=== PATIENT | male | born 1945 | race Caucasian/White ===

== ENCOUNTER 2017-05-16 14:10 | Emergency (ER) | payer OTHER ==
[~2017-05-16] VITALS: Ht 167.6 cm; Wt 78.0 kg
[~2017-05-16 14:10] MED LIST: BUSP10 PO; ECASA PO; GLUC1000 PO; LISI20 PO; NIFE1TAB85 PO; RANI150 PO; TERA2CAP3 PO; ZOCO40TA PO
[2017-05-16 14:12] VITALS: BP 135/88; PULSE 79; RESP 16; TEMP 98; O2SAT 95
--- NOTE | 2017-05-16 14:27 | PD ---
HPI Chief Complaint: Complaint Time Seen by Provider: 14:26 Travel History International Travel<30 days: No Contact w/Intl Traveler<30days: No Traveled to known affect area: No History of Present Illness HPI 72-year-old male who sees the [place], presents the emergency department with increasing abdominal discomfort, cramping, and burning with urination over the past several days. Patient was recently started on amoxicillin for dental issue. Patient states history of BPH currently on Terazosin, which she states he has not been taking recently. Patient has had intermittent incontinence over the past few weeks as well. Patient denies nausea or vomiting. No specific fever. No bowel changes. Patient is allergic to niacin. PFSH Past Medical History Hx Anticoagulant Therapy: Yes (ASPIRIN) Arthritis: Yes (BILATERAL HANDS) Asthma: No Autoimmune Disease: No Blood Disorders: No Anxiety: No Depression: No Heart Rhythm Problems: No Cancer: No Cardiovascular Problems: Yes High Cholesterol: Yes Chemotherapy: No Chest Pain: No Congestive Heart Failure: No COPD: No Cerebrovascular Accident: Yes Diabetes: Yes Diminished Hearing: Yes (diminished bilaterally) Endocrine: Yes Gastrointestinal Disorders: Yes GERD: No Glaucoma: No Genitourinary: No Headaches: No Hepatitis: No Hiatal Hernia: No Hypertension: Yes Immune Disorder: No Kidney Stones: No Musculoskeletal: Yes Neurologic: No Psychiatric: No Reproductive: No Respiratory: No Migraines: No Myocardial Infarction: No Radiation Therapy: No Renal Failure: No Seizures: No Sickle Cell Disease: No Sleep Apnea: No Thyroid Disease: No Ulcer: Yes PNEUMOCCOCAL Vaccine (Year): 1 Past Surgical History Abdominal Surgery: Yes (APPENDIX YEARS AGO) AICD: No Appendectomy: Yes Arteriovenous Shunt: No Cardiac Surgery: No Cholecystectomy: No Ear Surgery: No Endocrine Surgery: No Eye Surgery: No Genitourinary Surgery: No Gynecologic Surgery: No Insulin Pump: No Joint Replacement: No Oral Surgery: No Pacemaker: No Thoracic Surgery: No Other Surgery: Yes (scoped,"cauterized ulcer") Social History Alcohol Use: No Tobacco Use: Yes (/2 PPD) Substance Use: No Allergies-Medications (Allergen,Severity, Reaction): Coded Allergies: niacin (Verified Allergy, Severe, SWELLS UP, 05/16/17) Reported Meds & Prescriptions Reported Meds & Active Scripts Active Reported Glipizide 5 Mg Tab 5 Mg PO BIDAC Take 30 minutes before a meal Amoxicillin 500 Mg Cap 500 Mg PO TID Zocor (Simvastatin) 40 Mg Tab 40 Mg PO HS Norvasc (Amlodipine Besylate) 5 Mg Tab 5 Mg PO DAILY Tramadol (Tramadol HCl) 50 Mg Tab 50 Mg PO Q6H PRN Zocor (Simvastatin) 40 Mg Tab 40 Mg PO DAILY Vitamin D3 (Cholecalciferol) 1,000 Unit Tab 1,000 Units PO DAILY Terazosin (Terazosin HCl) 2 Mg Cap 2 Mg PO HS Zantac (Ranitidine HCl) 150 Mg Tab 150 Mg PO BID Review of Systems Except as stated in HPI: all other systems reviewed are Neg General / Constitutional: No: Fever, Chills Eyes: No: Visual changes HENT: No: Headaches Cardiovascular: No: Chest Pain or Discomfort Respiratory: No: Shortness of Breath Gastrointestinal: No: Nausea, Vomiting, Diarrhea, Abdominal Pain Genitourinary: Positive: Urgency, Frequency, Dysuria, Hesitancy, Dribbling, Incontinence, Flank Pain, Other (possible retention.), No: Nocturia, Hematuria, Decreased Urinary Output, Oliguria, Discharge Musculoskeletal: No: Pain Skin: No Rash Neurologic: No: Weakness Psychiatric: No: Depression Endocrine: No: Polydipsia Hematologic/Lymphatic: No: Easy Bruising Physical Exam Narrative GENERAL: Patient appears in mild to moderate distress. SKIN: Warm and dry. Normal color. Normal turgor. HEAD: Atraumatic. Normocephalic. EYES: Pupils equal and round. No scleral icterus. No injection or drainage. ENT: No nasal bleeding or discharge. Mucous membranes pink and moist. NECK: Trachea midline. No JVD. CARDIOVASCULAR: Regular rate and rhythm. RESPIRATORY: No accessory muscle use. Clear to auscultation. Breath sounds equal bilaterally. GASTROINTESTINAL: Abdomen soft, moderate suprapubic tenderness with palpable distended bladder. Hepatic and splenic margins not palpable. No significant CVA tenderness with percussion. MUSCULOSKELETAL: Extremities without clubbing, cyanosis, or edema. No obvious deformities. NEUROLOGICAL: Awake and alert. No obvious cranial nerve deficits. Motor grossly within normal limits. Five out of 5 muscle strength in the arms and legs. Normal speech. PSYCHIATRIC: Appropriate mood and affect; insight and judgment normal. Data Data Last Documented VS Vital Signs Date Time Temp Pulse Resp B/P (MAP) Pulse Ox O2 Delivery O2 Flow Rate FiO2 05/16/17 14:45 74 17 05/16/17 14:12 98.0 135/88 (104) 95 Room Air Orders Orders Complete Blood Count With Diff (05/16/17 14:42) Comprehensive Metabolic Panel (05/16/17 14:42) Urinalysis - C+S If Indicated (05/16/17 14:42) Iv Access Insert/Monitor (05/16/17 14:42) Levofloxacin (Levaquin) (05/16/17 14:45) Sodium Chloride 0.9% Flush (Ns Flush) (05/16/17 14:45) Urinary Catheter Insert/Apply (05/16/17 14:42) Lactic Acid (05/16/17 14:42) Tamsulosin (Flomax) (05/16/17 14:45) Labs Laboratory Tests Test 05/16/17 14:50 05/16/17 14:55 White Blood Count 11.0 TH/MM3 Red Blood Count 4.67 MIL/MM3 Hemoglobin 13.8 GM/DL Hematocrit 40.0 % Mean Corpuscular Volume 85.5 FL Mean Corpuscular Hemoglobin 29.6 PG Mean Corpuscular Hemoglobin Concent 34.6 % Red Cell Distribution Width 13.5 % Platelet Count 308 TH/MM3 Mean Platelet Volume 8.2 FL Neutrophils (%) (Auto) 80.5 % Lymphocytes (%) (Auto) 9.2 % Monocytes (%) (Auto) 7.0 % Eosinophils (%) (Auto) 2.6 % Basophils (%) (Auto) 0.7 % Neutrophils # (Auto) 8.9 TH/MM3 Lymphocytes # (Auto) 1.0 TH/MM3 Monocytes # (Auto) 0.8 TH/MM3 Eosinophils # (Auto) 0.3 TH/MM3 Basophils # (Auto) 0.1 TH/MM3 CBC Comment DIFF FINAL Differential Comment Urine Color YELLOW Urine Turbidity CLEAR Urine pH 5.5 Urine Specific [place] 1.009 Urine Protein TRACE mg/dL Urine Glucose (UA) 150 mg/dL Urine Ketones 10 mg/dL Urine Occult Blood MOD Urine Nitrite NEG Urine Bilirubin NEG Urine Urobilinogen LESS THAN 2.0 MG/DL Urine Leukocyte Esterase NEG Urine RBC 21 /hpf Urine WBC 3 /hpf Microscopic Urinalysis Comment CULT NOT INDICATED Blood Urea Nitrogen 16 MG/DL Creatinine 0.91 MG/DL Random Glucose 174 MG/DL Total Protein 7.6 GM/DL Albumin 3.2 GM/DL Calcium Level 8.9 MG/DL Alkaline Phosphatase 59 U/L Aspartate Amino Transf (AST/SGOT) 39 U/L Alanine Aminotransferase (ALT/SGPT) 24 U/L Total Bilirubin 0.7 MG/DL Sodium Level 132 MEQ/L Potassium Level 4.2 MEQ/L Chloride Level 96 MEQ/L Carbon Dioxide Level 28.3 MEQ/L Anion Gap 8 MEQ/L Estimat Glomerular Filtration Rate 82 ML/MIN Lactic Acid Level 1.2 mmol/L [facility] Medical Decision Making Medical Screen Exam Complete: Yes Emergency Medical Condition: Yes Medical Record Reviewed: Yes Differential Diagnosis BPH. Prostatitis. Urinary tract infection. Urinary retention. Narrative Course Patient is medically stable at time of exam. Basic labs ordered including CBC, CMP, lactic acid and urinalysis. Rojas catheter was placed to determine whether patient is retaining urine. Patient is given 750 mg Levaquin by mouth as well as 0.4 mg Flomax by mouth. Patient had a flow of 1500 mL urine post Rojas placement. Symptoms improved. CBC is unremarkable. CMP unremarkable. Urinalysis does not show an acute UTI. Patient is felt to have probable prostatitis with BPH with obstruction with urinary retention. Patient will continue the Rojas, and be treated with Cipro 500 mg twice a day 10 days. Patient is placed on Flomax 0.4 mg daily #30. Patient should maintain the [facility] Patient needs to see a urologist through the [place]. Patient can return to emergency Department with any worsening symptoms as needed. Diagnosis Primary Impression: BPH with urinary obstruction Referrals: [place] [facility] Patient Instructions: Benign Prostatic Hypertrophy (ED), Rojas Catheter Placement and Care (ED), General Instructions Additional Instructions: CBC is unremarkable. CMP unremarkable. Urinalysis does not show an acute UTI. Patient is felt to have probable prostatitis with BPH with obstruction with urinary retention. Patient will continue the Rojas, and be treated with Cipro 500 mg twice a day 10 days. Patient is placed on Flomax 0.4 mg daily #30. Patient should maintain the Ro[facility]. Patient needs to see a urologist through the [place]. Patient can return to emergency Department with any worsening symptoms as needed. Med/Other Pt SpecificInfo: Prescription(s) given Disposition: DISCHARGE HOME Condition: Stable Jonathan Don May 16, 2017 14:26
[2017-05-16] MEDS ORDERED: GLIP5TAB8 PO (14:33)
[2017-05-16] MEDS ORDERED: TERA2CAP3 PO (14:33)
[2017-05-16] MEDS ORDERED: AMOX500C PO (14:33)
[2017-05-16] MEDS ORDERED: ZOCO40TA PO ×2 (14:33)
[2017-05-16] MEDS ORDERED: ZANT150T2 PO (14:33)
[2017-05-16] MEDS ORDERED: TRAM50TA PO (14:33)
[2017-05-16] MEDS ORDERED: VITA100064 PO (14:33)
[2017-05-16] MEDS ORDERED: AMLO5 PO (14:33)
[2017-05-16] MEDS ORDERED: SODIUM CHLORIDE 0.9% FLUSH 10 ML FLUSH IVF PRN (14:45)
[2017-05-16] MEDS ORDERED: TAMSULOSIN HCL 0.4 MG CAP PO ONE (14:45)
[2017-05-16] MEDS ORDERED: LEVOFLOXACIN 750 MG TAB PO ONE (14:45)
[2017-05-16 15:13] LABS: AUTOMATED NEUTROPHIL # 8.9 TH/MM3 (1.8-7.7); BASOPHIL # 0.1 TH/MM3 (0-0.2); BASOPHIL % 0.7 % (0.0-2.0); EOSINOPHIL # 0.3 TH/MM3 (0-0.4); EOSINOPHIL % 2.6 % (0.0-4.0); HEMOGLOBIN 13.8 GM/DL (13.0-17.0); LYMPH % 9.2 % (9.0-44.0); MEAN CELL VOLUME 85.5 FL (80.0-100.0); MEAN CORPUSCULAR HEMOGLOBIN 29.6 PG (27.0-34.0); MEAN CORPUSCULAR HGB CONC 34.6 % (32.0-36.0); MEAN PLATELET VOLUME 8.2 FL (7.0-11.0); MONOCYTE # 0.8 TH/MM3 (0-0.9); NEUT % 80.5 % (16.0-70.0); PLATELET COUNT 308 TH/MM3 (150-450); RED BLOOD COUNT 4.67 MIL/MM3 (4.50-5.90); RED CELL DISTRIBUTION WIDTH 13.5 % (11.6-17.2)
[2017-05-16 15:30] LABS: BILIRUBIN, URINE NEG (NEG); BLOOD, URINE MOD (NEG); GLUCOSE,URINE 150 mg/dL (NEG); KETONE, URINE 10 mg/dL (NEG); NITRITE,URINE NEG (NEG); PH, URINE 5.5 (5.0-8.5); URINE COLOR YELLOW (YELLW/STRAW); URINE LEUKOCYTE ESTERASE NEG (NEG)
[2017-05-16 15:32] LABS: ALBUMIN 3.2 GM/DL (3.4-5.0); ALT (GPT) 24 U/L (12-78); AST (GOT) 39 U/L (15-37); BICARBONATE 28.3 MEQ/L (21.0-32.0); BLOOD UREA NITROGEN 16 MG/DL (7-18); CALCIUM 8.9 MG/DL (8.5-10.1); CHLORIDE 96 MEQ/L (98-107); CREATININE 0.91 MG/DL (0.60-1.30); GLOMERULAR FILTRATION RATE 82 ML/MIN (>89); GLUCOSE,RANDOM 174 MG/DL (74-106); SODIUM (NA) 132 MEQ/L (136-145)
[2017-05-16 15:33] LABS: ALKALINE PHOSPHATASE 59 U/L (45-117); TOTAL BILIRUBIN ADULT 0.7 MG/DL (0.2-1.0); TOTAL PROTEIN 7.6 GM/DL (6.4-8.2)
[2017-05-16] MEDS ORDERED: CIPR-9 PO (15:50)
[2017-05-16] MEDS ORDERED: TAMS5CAP PO (15:50)
[2017-05-16 16:16] VITALS: BP 148/77; TEMP 97.8
== END 2017-05-16 16:17 | disposition home or self-care (01) ==
LOC: NEPE 14:10
DX: N40.1 Benign prostatic hyperplasia with lower urinary tract symptoms (principal); N13.9 Obstructive and reflux uropathy, unspecified; R30.0 Dysuria; E11.9 Type 2 diabetes mellitus without complications; I10 Essential (primary) hypertension; Z79.01 Long term (current) use of anticoagulants; Z72.0 Tobacco use
CPT/HCPCS: 51702; 80053; 81001; 83605; 85025

== ENCOUNTER 2017-05-18 21:06 | Emergency (ER) | payer OTHER ==
[~2017-05-18] VITALS: Ht 167.6 cm; Wt 77.3 kg
[~2017-05-18 21:06] MED LIST changes: +AMLO5 PO; +AMOX500C PO; -BUSP10 PO; +CIPR-9 PO; -ECASA PO; +GLIP5TAB8 PO; -GLUC1000 PO; -LISI20 PO; -NIFE1TAB85 PO; -RANI150 PO; +TAMS5CAP PO; +TRAM50TA PO; +VITA100064 PO; +ZANT150T2 PO
[2017-05-18 21:09] VITALS: BP 146/77; PULSE 80; RESP 18; TEMP 98.5; O2SAT 95
--- NOTE | 2017-05-19 00:49 | PD ---
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 He had it placed on 05/16 because he was unable to urinate. He says it is causing pain to the tip of his penis. He says he was not taking his BPH medication at the time, but has restarted it, so believes he will now be able to pee. He denies any other symptoms. He denies abdominal pain, nausea , vomiting, fever or chills. He has not seen urology yet. PFSH Past Medical History Hx Anticoagulant Therapy: Yes (ASPIRIN) Arthritis: Yes (BILATERAL HANDS) Asthma: No Autoimmune Disease: No Blood Disorders: No Anxiety: No Depression: No Heart Rhythm Problems: No Cancer: No Cardiovascular Problems: Yes (HTN, Hyperlipidemia) High Cholesterol: Yes Chemotherapy: No Chest Pain: No Congestive Heart Failure: No COPD: No Cerebrovascular Accident: Yes Diabetes: Yes Patient Takes Glucophage: Yes Diminished Hearing: Yes (diminished bilaterally) Endocrine: Yes Gastrointestinal Disorders: Yes GERD: No Glaucoma: No Genitourinary: No Headaches: No Hepatitis: No Hiatal Hernia: No Hypertension: Yes Immune Disorder: No Kidney Stones: No Musculoskeletal: Yes Neurologic: No Psychiatric: No Reproductive: No Respiratory: No Migraines: No Myocardial Infarction: No Radiation Therapy: No Renal Failure: No Seizures: No Sickle Cell Disease: No Sleep Apnea: No Thyroid Disease: No Ulcer: Yes PNEUMOCCOCAL Vaccine (Year): 1 Past Surgical History Abdominal Surgery: Yes (APPENDIX YEARS AGO) AICD: No Appendectomy: Yes Arteriovenous Shunt: No Cardiac Surgery: No Cholecystectomy: No Ear Surgery: No Endocrine Surgery: No Eye Surgery: No Genitourinary Surgery: No Gynecologic Surgery: No Insulin Pump: No Joint Replacement: No Oral Surgery: No Pacemaker: No Thoracic Surgery: No Other Surgery: Yes (scoped,"cauterized ulcer") Social History Alcohol Use: No Tobacco Use: Yes (QUIT 3 MONTHS AGO) Substance Use: No Allergies-Medications (Allergen,Severity, Reaction): Coded Allergies: niacin (Verified Allergy, Severe, SWELLS UP, 05/18/17) Reported Meds & Prescriptions Reported Meds & Active Scripts Active Flomax (Tamsulosin HCl) 0.4 Mg Cap 0.4 Mg PO HS Cipro (Ciprofloxacin HCl) 500 Mg Tab 500 Mg PO BID 10 Days Reported Zantac (Ranitidine HCl) 150 Mg Tab 150 Mg PO BID Glipizide 5 Mg Tab 5 Mg PO BIDAC Take 30 minutes before a meal Amoxicillin 500 Mg Cap 500 Mg PO TID Zocor (Simvastatin) 40 Mg Tab 40 Mg PO HS Norvasc (Amlodipine Besylate) 5 Mg Tab 5 Mg PO DAILY Tramadol (Tramadol HCl) 50 Mg Tab 50 Mg PO Q6H PRN Zocor (Simvastatin) 40 Mg Tab 40 Mg PO DAILY Vitamin D3 (Cholecalciferol) 1,000 Unit Tab 1,000 Units PO DAILY Terazosin (Terazosin HCl) 2 Mg Cap 2 Mg PO HS Review of Systems General / Constitutional: No: Fever, Chills HENT: No: Headaches, Lightheadedness Cardiovascular: No: Chest Pain or Discomfort Respiratory: No: Shortness of Breath Gastrointestinal: No: Nausea, Vomiting, Abdominal Pain Genitourinary: No: Dysuria Musculoskeletal: No: Myalgias Skin: No Rash, No Change in Pigmentation Neurologic: No: Weakness, Dizziness Physical Exam Narrative GENERAL: Awake and alert, in no acute distress. SKIN: Focused skin assessment warm/dry. HEAD: Atraumatic. Normocephalic. EYES: Pupils equal and round. No scleral icterus. ENT: Mucous membranes pink and moist. CARDIOVASCULAR: Regular rate and rhythm. No murmur appreciated. RESPIRATORY: No accessory muscle use. Clear to auscultation. Breath sounds equal bilaterally. GASTROINTESTINAL: Abdomen soft, non-tender, nondistended. : No sores to the penis. Lopes catheter in place. NEUROLOGICAL: Awake and alert. No obvious cranial nerve deficits. Motor grossly within normal limits. Normal speech. Data Data Last Documented VS Vital Signs Date Time Temp Pulse Resp B/P (MAP) Pulse Ox O2 Delivery O2 Flow Rate FiO2 05/18/17 23:20 20 100 05/18/17 21:09 98.5 80 146/77 (100) Orders Orders Urinalysis - C+S If Indicated (05/18/17 23:07) MDM Medical Decision Making Medical Screen Exam Complete: Yes Emergency Medical Condition: Yes Medical Record Reviewed: Yes Differential Diagnosis lopes catheter malfunction vs irritation vs obstruction Narrative Course Patient is a 72 year old male who comes in because he would like his lopes catheter removed. I explained to him that if it is removed he very likely will be unable to urinate. He is offered lidocaine jelly to help with the irritation , but insists he wants the catheter removed. Catheter removed. Patient would like to go home and try to urinate. I expressed to him again that I believe he will be unable to urinate without a lopes. He says he wants to go home. Advised to continue his BPH medication. Advised to follow up with urology. Advised to return to the ED as needed for any worsening symptoms. Diagnosis Primary Impression: BPH (benign prostatic hyperplasia) Qualified Codes: N40.1 - Benign prostatic hyperplasia with lower urinary tract symptoms; N13.8 - Other obstructive and reflux uropathy Patient Instructions: Benign Prostatic Hypertrophy (ED), General Instructions Additional Instructions: Follow up with urology. Return to the ED as needed for any worsening symptoms. Disposition: 01 DISCHARGE HOME Condition: Stable Vianca Nash MD May 19, 2017 00:49
== END 2017-05-19 01:32 | disposition home or self-care (01) ==
LOC: NEPD 21:06
DX: N40.1 Benign prostatic hyperplasia with lower urinary tract symptoms (principal); N13.8 Other obstructive and reflux uropathy; I10 Essential (primary) hypertension; E78.5 Hyperlipidemia, unspecified; E11.9 Type 2 diabetes mellitus without complications; Z79.01 Long term (current) use of anticoagulants
CPT/HCPCS: 99283

== ENCOUNTER 2017-05-22 17:36 | Emergency (ER) | payer OTHER ==
[~2017-05-22] VITALS: Ht 167.6 cm; Wt 80.0 kg
[2017-05-22 17:38] VITALS: BP 159/70; PULSE 71; RESP 18; TEMP 99.2; O2SAT 96
--- NOTE | 2017-05-22 17:45 | PD ---
HPI Chief Complaint: Complaint Time Seen by Provider: 17:45 Travel History International Travel<30 days: No Contact w/Intl Traveler<30days: No Traveled to known affect area: No History of Present Illness HPI 72-year-old male came to the emergency room with his for discomfort/pain in his penis where he has the Rojas catheter. Patient had urinary retention on May 16 and was in the emergency room. He had a Rojas catheter put in and discharged home. Then he returned on the second because he wanted the catheter to be taken out which was taken out. However he returned to ID the next day for urinary retention again and the catheter was inserted again. Currently the same catheter is still in but he started having this discomfort and this morning his noticed that he was having blood-tinged urine which continued to get bloodier as the day progressed. Vital signs are stable. Patient is on ciprofloxacin which was started at ID on the fourth. [facility] Past Medical History Narrative Medical List of his past medical, surgical, social and family history is reviewed from the nursing note. Hx Anticoagulant Therapy: Yes (ASPIRIN) Arthritis: Yes (BILATERAL HANDS) Asthma: No Autoimmune Disease: No Blood Disorders: No Anxiety: No Depression: No Heart Rhythm Problems: No Cancer: No Cardiovascular Problems: Yes (HTN, Hyperlipidemia) High Cholesterol: Yes Chemotherapy: No Chest Pain: No Congestive Heart Failure: No COPD: No Cerebrovascular Accident: Yes Diabetes: Yes Diminished Hearing: Yes (diminished bilaterally) Endocrine: Yes Gastrointestinal Disorders: Yes GERD: No Glaucoma: No Genitourinary: No Headaches: No Hepatitis: No Hiatal Hernia: No Hypertension: Yes Immune Disorder: No Kidney Stones: No Musculoskeletal: Yes Neurologic: No Psychiatric: No Reproductive: No Respiratory: No Migraines: No Myocardial Infarction: No Radiation Therapy: No Renal Failure: No Seizures: No Sickle Cell Disease: No Sleep Apnea: No Thyroid Disease: No Ulcer: Yes PNEUMOCCOCAL Vaccine (Year): 1 Past Surgical History Abdominal Surgery: Yes (APPENDIX YEARS AGO) AICD: No Appendectomy: Yes Arteriovenous Shunt: No Cardiac Surgery: No Cholecystectomy: No Ear Surgery: No Endocrine Surgery: No Eye Surgery: No Genitourinary Surgery: No Gynecologic Surgery: No Insulin Pump: No Joint Replacement: No Oral Surgery: No Pacemaker: No Thoracic Surgery: No Other Surgery: Yes (scoped,"cauterized ulcer") Social History Alcohol Use: No Tobacco Use: Yes (QUIT 3 MONTHS AGO) Substance Use: No Allergies-Medications (Allergen,Severity, Reaction): Coded Allergies: niacin (Verified Allergy, Severe, SWELLS UP, 05/22/17) Comments List of his allergies reviewed from the nursing note. Reported Meds & Prescriptions Reported Meds & Active Scripts Active Flomax (Tamsulosin HCl) 0.4 Mg Cap 0.4 Mg PO HS Cipro (Ciprofloxacin HCl) 500 Mg Tab 500 Mg PO BID 10 Days Reported Zantac (Ranitidine HCl) 150 Mg Tab 150 Mg PO BID Glipizide 5 Mg Tab 5 Mg PO BIDAC Take 30 minutes before a meal Zocor (Simvastatin) 40 Mg Tab 40 Mg PO HS Norvasc (Amlodipine Besylate) 5 Mg Tab 5 Mg PO DAILY Tramadol (Tramadol HCl) 50 Mg Tab 50 Mg PO Q6H PRN Vitamin D3 (Cholecalciferol) 1,000 Unit Tab 1,000 Units PO DAILY Terazosin (Terazosin HCl) 2 Mg Cap 2 Mg PO HS Narrative Medication list of his home medications reviewed from the nursing note. Review of Systems Except as stated in HPI: all other systems reviewed are Neg Genitourinary: Positive: Hematuria Physical Exam Narrative GENERAL: Awake, alert, moderate distress SKIN: Focused skin assessment warm/dry. HEAD: Atraumatic. Normocephalic. EYES: Pupils equal and round. No scleral icterus. No injection or drainage. ENT: No nasal bleeding or discharge. Mucous membranes pink and moist. NECK: Trachea midline. No JVD. CARDIOVASCULAR: Regular rate and rhythm. No murmur appreciated. RESPIRATORY: No accessory muscle use. Clear to auscultation. Breath sounds equal bilaterally. GASTROINTESTINAL: Abdomen soft, non-tender, nondistended. Hepatic and splenic margins not palpable. MUSCULOSKELETAL: No obvious deformities. No clubbing. No cyanosis. No edema. NEUROLOGICAL: Awake and alert. No obvious cranial nerve deficits. Motor grossly within normal limits. Normal speech. PSYCHIATRIC: Appropriate mood and affect; insight and judgment normal. Data Data Last Documented VS Vital Signs Date Time Temp Pulse Resp B/P (MAP) Pulse Ox O2 Delivery O2 Flow Rate FiO2 05/22/17 20:43 05/22/17 18:54 70 16 96 Room Air 05/22/17 17:38 99.2 Orders Orders Basic Metabolic Panel (Bmp) (05/22/17 17:56) Complete Blood Count With Diff (05/22/17 17:56) Ua Includes Microscopic (05/22/17 17:56) Ct Abd/Pel W/O Iv Contrast (05/22/17 17:56) Sodium Chloride 0.9% Flush (Ns Flush) (05/22/17 18:00) Bladder/Catheter Irrigation (05/22/17 17:56) Lidocaine 2% Jelly (Xylocaine 2% Jelly) (05/22/17 18:30) Urine Culture (05/22/17 19:38) Ceftriaxone Inj (Rocephin Inj) (05/22/17 19:45) Ed Discharge Order (05/22/17 20:27) Labs Laboratory Tests Test 05/22/17 18:15 05/22/17 18:50 White Blood Count 10.6 TH/MM3 Red Blood Count 4.71 MIL/MM3 Hemoglobin 13.8 GM/DL Hematocrit 41.1 % Mean Corpuscular Volume 87.1 FL Mean Corpuscular Hemoglobin 29.4 PG Mean Corpuscular Hemoglobin Concent 33.7 % Red Cell Distribution Width 13.8 % Platelet Count 352 TH/MM3 Mean Platelet Volume 8.1 FL Neutrophils (%) (Auto) 72.3 % Lymphocytes (%) (Auto) 15.5 % Monocytes (%) (Auto) 8.0 % Eosinophils (%) (Auto) 3.1 % Basophils (%) (Auto) 1.1 % Neutrophils # (Auto) 7.7 TH/MM3 Lymphocytes # (Auto) 1.6 TH/MM3 Monocytes # (Auto) 0.8 TH/MM3 Eosinophils # (Auto) 0.3 TH/MM3 Basophils # (Auto) 0.1 TH/MM3 CBC Comment DIFF FINAL Differential Comment Blood Urea Nitrogen 19 MG/DL Creatinine 0.93 MG/DL Random Glucose 198 MG/DL Calcium Level 8.8 MG/DL Sodium Level 134 MEQ/L Potassium Level 4.1 MEQ/L Chloride Level 99 MEQ/L Carbon Dioxide Level 30.6 MEQ/L Anion Gap 4 MEQ/L Estimat Glomerular Filtration Rate 80 ML/MIN Urine Color RED Urine Turbidity MARKED Urine pH 6.0 Urine Specific [place] 1.019 Urine Protein 100 mg/dL Urine Glucose (UA) 70 mg/dL Urine Ketones NEG mg/dL Urine Occult Blood MOD Urine Nitrite NEG Urine Bilirubin NEG Urine Urobilinogen LESS THAN 2.0 MG/DL Urine Leukocyte Esterase NEG Urine RBC /hpf Urine WBC /hpf Urine WBC Clumps MANY Urine Mucus FEW /lpf MDM Medical Decision Making Medical Screen Exam Complete: Yes Emergency Medical Condition: Yes Medical Record Reviewed: Yes Differential Diagnosis Hemorrhagic cystitis, cystitis, bladder tumor, renal tumor Narrative Course 6:25 PM patient is getting a continuous bladder irrigation. Awaiting for the blood test and UA results. A CT scan has been ordered as well. The plan is that if all the workup is negative then patient will be discharged home. The said that they're waiting for a referral with the urologist which is being coordinated through ID. Procedures EKG Prior to Arrival: No Diagnosis Primary Impression: Gross hematuria Rebecca Haro MD May 22, 2017 17:45
[2017-05-22] MEDS ORDERED: SODIUM CHLORIDE 0.9% FLUSH 10 ML FLUSH IVF PRN (18:00)
[2017-05-22] MEDS ORDERED: LIDOCAINE HCL 2% JELLY 5 ML SYRINGE TOPICAL ONE (18:30)
[2017-05-22 18:54] VITALS: BP 160/95; PULSE 70; RESP 16; O2SAT 96
[2017-05-22 18:55] LABS: AUTOMATED NEUTROPHIL # 7.7 TH/MM3 (1.8-7.7); BASOPHIL # 0.1 TH/MM3 (0-0.2); BASOPHIL % 1.1 % (0.0-2.0); EOSINOPHIL # 0.3 TH/MM3 (0-0.4); EOSINOPHIL % 3.1 % (0.0-4.0); HEMATOCRIT 41.1 % (39.0-51.0); HEMOGLOBIN 13.8 GM/DL (13.0-17.0); LYMPH % 15.5 % (9.0-44.0); LYMPHOCYTE # 1.6 TH/MM3 (1.0-4.8); MEAN CELL VOLUME 87.1 FL (80.0-100.0); MEAN CORPUSCULAR HEMOGLOBIN 29.4 PG (27.0-34.0); MEAN CORPUSCULAR HGB CONC 33.7 % (32.0-36.0); MEAN PLATELET VOLUME 8.1 FL (7.0-11.0); MONOCYTE # 0.8 TH/MM3 (0-0.9); NEUT % 72.3 % (16.0-70.0); PLATELET COUNT 352 TH/MM3 (150-450); RED BLOOD COUNT 4.71 MIL/MM3 (4.50-5.90); RED CELL DISTRIBUTION WIDTH 13.8 % (11.6-17.2); WHITE BLOOD COUNT 10.6 TH/MM3 (4.0-11.0)
--- NOTE | 2017-05-22 18:56 | RADRPT ---
EXAM DATE/TIME: 05/22/2017 18:06 [place] COMPARISON: No previous studies available for comparison. INDICATIONS : Acute onset of penile pain, gross hematuria and urinary retention. ORAL CONTRAST: No oral contrast ingested. RADIATION DOSE: 7.33 CTDIvol (mGy) MEDICAL HISTORY : Cardiovascular disease. Hypertension. Diabetes mellitus type 2. SURGICAL HISTORY : Appendectomy. ENCOUNTER: Initial ACUITY: 1 day PAIN SCALE: 6/10 LOCATION: penis TECHNIQUE: Volumetric scanning of the abdomen and pelvis was performed. Using automated exposure control and ad justment of the mA and/or kV according to patient size, radiation dose was kept as low as reasonably achievable to obtain optimal diagnostic quality images. DICOM format image data is available electro nically for review and comparison. FINDINGS: LOWER LUNGS: The left hemidiaphragm is elevated. There is compressive atelectasis in the left lower lobe. Calcifie d plaque is identified in the left anterior descending coronary artery. LIVER: Homogeneous density without lesion. There is no dilation of the biliary tree. No calcified gallston es. SPLEEN: Normal size without lesion. PANCREAS: Within normal limits. KIDNEYS: Normal in size and shape. There is no mass, stone, or hydronephrosis. 2 simple cyst identified in th e right kidney measuring 4.4 and 6.4 cm in size. ADRENAL GLANDS: Within normal limits. VASCULAR: There is no aortic aneurysm. BOWEL/MESENTERY: The stomach, small bowel, and colon demonstrate no acute abnormality. There is no free intraperitone al air or fluid. ABDOMINAL WALL: Within normal limits. RETROPERITONEUM: There is no lymphadenopathy. BLADDER: Rojas catheter noted in place. The ureter bladder is collapsed however bladder wall thickening is ashleigh arent. REPRODUCTIVE: The prostate gland is enlarged. Calcific deposits are seen in the transition zone. INGUINAL: There is no lymphadenopathy or hernia. MUSCULOSKELETAL: Within normal limits for patient age. CONCLUSION: 1. Decompressed bladder with indwelling Rojas and thickened urinary bladder wall 2. Prostatomegaly 3. Right renal cysts 4. No evidence of renal mass or hydronephrosis 5. Coronary artery calcification. 6. Elevated left hemidiaphragm with compressive atelectasis in the left lower lobe James Yu MD on May 22, 2017 at 18:49 Board Certified Radiologist. This report was verified electronically.
--- NOTE | 2017-05-22 19:09 | PD ---
Physical Exam Date Seen by Provider: May 22, 2017 Time Seen by Provider: 19:08 Narrative Accepted in transfer of care from Dr. Haro Data Data Last Documented VS Vital Signs Date Time Temp Pulse Resp B/P (MAP) Pulse Ox O2 Delivery O2 Flow Rate FiO2 05/22/17 18:54 70 16 160/95 (116) 96 Room Air 05/22/17 17:38 99.2 Orders Orders Basic Metabolic Panel (Bmp) (05/22/17 17:56) Complete Blood Count With Diff (05/22/17 17:56) Ua Includes Microscopic (05/22/17 17:56) Ct Abd/Pel W/O Iv Contrast (05/22/17 17:56) Sodium Chloride 0.9% Flush (Ns Flush) (05/22/17 18:00) Bladder/Catheter Irrigation (05/22/17 17:56) Lidocaine 2% Jelly (Xylocaine 2% Jelly) (05/22/17 18:30) Urine Culture (05/22/17 19:38) Ceftriaxone Inj (Rocephin Inj) (05/22/17 19:45) Labs Laboratory Tests Test 05/22/17 18:15 05/22/17 18:50 White Blood Count 10.6 TH/MM3 Red Blood Count 4.71 MIL/MM3 Hemoglobin 13.8 GM/DL Hematocrit 41.1 % Mean Corpuscular Volume 87.1 FL Mean Corpuscular Hemoglobin 29.4 PG Mean Corpuscular Hemoglobin Concent 33.7 % Red Cell Distribution Width 13.8 % Platelet Count 352 TH/MM3 Mean Platelet Volume 8.1 FL Neutrophils (%) (Auto) 72.3 % Lymphocytes (%) (Auto) 15.5 % Monocytes (%) (Auto) 8.0 % Eosinophils (%) (Auto) 3.1 % Basophils (%) (Auto) 1.1 % Neutrophils # (Auto) 7.7 TH/MM3 Lymphocytes # (Auto) 1.6 TH/MM3 Monocytes # (Auto) 0.8 TH/MM3 Eosinophils # (Auto) 0.3 TH/MM3 Basophils # (Auto) 0.1 TH/MM3 CBC Comment DIFF FINAL Differential Comment Blood Urea Nitrogen 19 MG/DL Creatinine 0.93 MG/DL Random Glucose 198 MG/DL Calcium Level 8.8 MG/DL Sodium Level 134 MEQ/L Potassium Level 4.1 MEQ/L Chloride Level 99 MEQ/L Carbon Dioxide Level 30.6 MEQ/L Anion Gap 4 MEQ/L Estimat Glomerular Filtration Rate 80 ML/MIN Urine Color RED Urine Turbidity MARKED Urine pH 6.0 Urine Specific [place] 1.019 Urine Protein 100 mg/dL Urine Glucose (UA) 70 mg/dL Urine Ketones NEG mg/dL Urine Occult Blood MOD Urine Nitrite NEG Urine Bilirubin NEG Urine Urobilinogen LESS THAN 2.0 MG/DL Urine Leukocyte Esterase NEG Urine RBC /hpf Urine WBC /hpf Urine WBC Clumps MANY Urine Mucus FEW /lpf MDM Medical Record Reviewed: Yes Supervised Visit with DAMON: No Interpretation(s) CBC & BMP Diagram 05/22/17 18:15 Calcium Level 8.8 Last Impressions Abdomen/Pelvis CT 05/22/17 4586 Signed Impressions: Service Date/Time: Monday, May 22, 2017 18:06 - CONCLUSION: 1. Decompressed bladder with indwelling Rojas and thickened urinary bladder wall 2. Prostatomegaly 3. Right renal cysts 4. No evidence of renal mass or hydronephrosis 5. Coronary artery calcification. 6. Elevated left hemidiaphragm with compressive atelectasis in the left lower lobe James Yu MD Vital Signs Date Time Temp Pulse Resp B/P (MAP) Pulse Ox O2 Delivery O2 Flow Rate FiO2 05/22/17 18:54 70 16 160/95 (116) 96 Room Air 05/22/17 17:38 99.2 71 18 159/70 (99) 96 Urinalysis: Catheterized specimen many WBCs; culture added and patient will be given first dose of Rocephin times one Differential Diagnosis Accepted in transfer of care from Dr. Haro; please refer to her dictation Narrative Course Accepted in transfer of care from Dr. Haro; follow up and disposition Lab values resulted patient identified to have multiple wbc's on catheterized urinalysis patient is on Cipro culture has been ordered and patient will receive a one-time dose of Rocephin 1 g IV in the emergency department and then will be stable for discharge to home and encouraged to increase fluid hydration Diagnosis Primary Impression: Gross hematuria Referrals: Urologist call for appointment On-call urologist Dr. [facility] [place] [facility] Day 2 days Patient Instructions: General Instructions Additional Instruction: Increase fluid hydration Follow-up with urologist Complete course of antibiotic as prescribed Take acetaminophen/Tylenol as often as every 4 hours as needed for fever 100.4 days Fahrenheit or greater Return to the emergency department for any concerns or change in condition Med/Other Pt SpecificInfo: No Change to Meds Disposition: 01 DISCHARGE HOME Condition: Stable Laurie Bolaños MD May 22, 2017 19:09
[2017-05-22 19:12] LABS: BICARBONATE 30.6 MEQ/L (21.0-32.0); CALCIUM 8.8 MG/DL (8.5-10.1); CREATININE 0.93 MG/DL (0.60-1.30)
[2017-05-22 19:19] LABS: BILIRUBIN, URINE NEG (NEG); BLOOD, URINE MOD (NEG); GLUCOSE,URINE 70 mg/dL (NEG); KETONE, URINE NEG (NEG); MUCUS URINE FEW /lpf (OCC); NITRITE,URINE NEG (NEG); URINE LEUKOCYTE ESTERASE NEG (NEG); WHITE BLOOD CELL CLUMPS MANY
[2017-05-22 19:20] LABS: URINE COLOR RED (YELLW/STRAW)
[2017-05-22] MEDS ORDERED: cefTRIAXone INJ 1,000 MG in SODIUM CHLORIDE 0.9% INJ 100 ML IV ONE (19:45)
== END 2017-05-22 21:30 | disposition home or self-care (01) ==
LOC: NEPC 17:36
DX: R31.0 Gross hematuria (principal); I10 Essential (primary) hypertension; E11.9 Type 2 diabetes mellitus without complications; Z79.01 Long term (current) use of anticoagulants
CPT/HCPCS: 74176; 80048; 81001; 85025; 87086; 96374; 99285; J0696

== ENCOUNTER 2018-03-28 10:47 | Inpatient (IN) ==
--- NOTE | 2018-03-28 11:15 | CT ---
EXAM DATE: 03/28/2018 11:09 AM EST AGE/SEX: 73 years / Male INDICATIONS: Left side weakness confusion CLINICAL DATA: This is the patient's initial encounter. Patient reports that signs and symptoms have been present for 1 day and indicates a pain score of Nonresponsive. MEDICAL/SURGICAL HISTORY: Non-responsive. Non-responsive. RADIATION DOSE: 39.82 CTDI (mGy) [place] [facility] [place]. . TECHNIQUE: CT of the head without contrast. Using automated exposure control and adjustment of the mA and/or kV according to patient size, radiation dose was kept as low as reasonably achievable to ob tain optimal diagnostic quality images. DICOM format image data is available electronically for revi ew and comparison. FINDINGS: Focal area of decreased density in the right orbital frontal region probably subacute stroke. 2 small focal areas of increased density in the basal ganglia bilaterally larger on the right than the left. These could be calcification or hemorrhage. There is mild central and cortical atrophy. Moderate periventricular white matter changes are evident Posterior fossa appears unremarkable . There are no extra-axial fluid collections appreciated. Portion of the orbits reveal sinuses visualized are unremarkable CONCLUSION: 1. Probable subacute stroke right orbital frontal region 2. Probably calcification basal ganglia bilaterally. Cannot entirely exclude hemorrhage 3. Findings were discussed with Dr. Michelle while on the scanner. Electronically signed by: Matt Lynn MD 03/28/2018 11:13 AM EST
[2018-03-28 11:22] LABS: Baso # (Auto) 0.1 th/mm3 (0.0-0.2); Baso % (Auto) 0.6 % (0.0-2.0); Eos # (Auto) 0.2 th/mm3 (0.0-0.4); Eos % (Auto) 1.5 % (0.0-4.0); Hematocrit 44.5 % (39.0-51.0); Hemoglobin 14.8 gm/dL (13.0-17.0); Lymph # (Auto) 1.7 th/mm3 (1.0-4.8); Lymph % (Auto) 15.1 % (9.0-44.0); Mean Corpuscular HGB Conc 33.2 % (32.0-36.0); Mean Corpuscular Hemoglobin 29.2 pg (27.0-34.0); Mean Platelet Volume 8.2 fL (7.0-11.0); Mono # (Auto) 0.9 th/mm3 (0.0-0.9); Mono % (Auto) 8.2 % (0.0-8.0); Neut # (Auto) 8.4 th/mm3 (1.8-7.7); Neut % (Auto) 74.6 % (16.0-70.0); Platelet Count 305 th/mm3 (150-450); Red Blood Count 5.05 mil/mm3 (4.50-5.90); Red Cell Distribution Width 14.3 % (11.6-17.2); White Blood Count 11.2 th/mm3 (4.0-11.0)
[2018-03-28] MEDS: Sod Chloride 0.9% Inj 1,000 ML IV.CONT SCH ×2 (11:35→14:18)
[2018-03-28 11:36] LABS: Activated Partial Thrombo Time 30.9 sec (23.4-31.7); INR 1.1 Ratio
[2018-03-28 11:45] LABS: Creatine Kinase 369 U/L (39-308)
--- NOTE | 2018-03-28 11:53 | CT ---
EXAM DATE: 03/28/2018 11:38 AM EST AGE/SEX: 73 years / Male INDICATIONS: Left side weakness confusion CLINICAL DATA: This is the patient's initial encounter. Patient reports that signs and symptoms have been present for 1 day and indicates a pain score of Nonresponsive. MEDICAL/SURGICAL HISTORY: Non-responsive. Non-responsive. RADIATION DOSE: 314.22 CTDI (mGy) COMPARISON: . TECHNIQUE: CT of the head after intravenous administration of 40 ml Visipaque 320 (iodixanol) nonio johana water-soluble contrast as a single exam dose. Using automated exposure control and adjustment of the mA and/or kV according to patient size, radiation dose was kept as low as reasonably achievable to obtain optimal diagnostic quality images. DICOM format image data is available electronically for review and comparison. FINDINGS: 1. CBF (<30%) Volume (ml): 16 2. Perfusion (Tmax>6.0s) Volume (ml): 231 3. Mismatch Volume (ml) (Tmax>6.0 - CBF): 215 CONCLUSION: Physiological brain perfusion parameters with RAPID analysis as above. The decision for consideration of therapy is multi factorial and multi disciplinary relying on subjec tive and objective clinical data. This data is not construed or intended to be the sole determinant of treatment eligibility. Electronically signed by: Romie Lynn MD 03/28/2018 11:52 AM EST
--- NOTE | 2018-03-28 11:54 | XR ---
EXAM DATE: 03/28/2018 11:49 AM EST AGE/SEX: 73 years / Male INDICATIONS: Stroke alert. CLINICAL DATA: This is the patient's initial encounter. Patient reports that signs and symptoms have been present for 1 day and indicates a pain score of 6/10. MEDICAL/SURGICAL HISTORY: Non-responsive. Non-responsive. COMPARISON: [facility] – [place], CHEST SINGLE AP, 05/03/2012. . FINDINGS: The left hemidiaphragm is elevated. This is of uncertain etiology. The heart is normal in size. There are chronic interstitial changes within the pulmonary parenchyma. The bony structures are grossly in tact. CONCLUSION: Elevation of the left hemidiaphragm. Chronic interstitial changes within the pulmonary parenchyma Electronically signed by: Romie Lnyn MD 03/28/2018 11:53 AM EST
[2018-03-28 11:57] LABS: CKMB Percent 0.6 % (0.0-4.0); Creatine Kinase MB 2.2 ng/mL (0.5-3.6)
--- NOTE | 2018-03-28 12:01 | CT ---
EXAM DATE: 03/28/2018 11:40 AM EST AGE/SEX: 73 years / Male INDICATIONS: Left side weakness confusion CLINICAL DATA: This is the patient's initial encounter. Patient reports that signs and symptoms have been present for 1 day and indicates a pain score of Nonresponsive. MEDICAL/SURGICAL HISTORY: Non-responsive. Non-responsive. RADIATION DOSE: 28.46 CTDI (mGy) ; Combined studies COMPARISON: [facility] – [place], [place] CEREBRAL PERF W CONTRAST W 3D, 03/28/2018. . TECHNIQUE: Volumetric scanning was performed using a multi-row detector CT scanner during bolus infu cory of 70 ml Visipaque 320 (iodixanol) nonionic water-soluble contrast as a cumulative dose for mul tiple exams. The data was post processed with a variety of visualization algorithms including full volume maximum intensity projection, multi-planar sliding thin slab reformation, curved planar reform ation, and surface rendering techniques. Using automated exposure control and adjustment of the mA a nd/or kV according to patient size, radiation dose was kept as low as reasonably achievable to obtain optimal diagnostic quality images. DICOM format image data is available electronically for review a nd comparison. FINDINGS: Rapid perfusion imaging demonstrates developing cortical infarct in the watershed distribution wastewater technician iorly on the right. The distal internal carotid arteries are widely patent. The anterior and middle cerebral circulation appears widely patent. No large or central vessel occlusion is identified. Both vertebral arteries are widely patent. The basilar is widely patent. The posterior cerebral circu lation is patent bilaterally. CONCLUSION: 1. Rapid perfusion imaging demonstrates evolving cortical infarction the watershed distribution post eriorly on the right. 2. No large or central vessel occlusion identified. Electronically signed by: Romie Lynn MD 03/28/2018 11:59 AM EST
--- NOTE | 2018-03-28 12:07 | CT ---
EXAM DATE: 03/28/2018 11:58 AM EST AGE/SEX: 73 years / Male INDICATIONS: Stroke alert, nonresponsive. CLINICAL DATA: This is the patient's initial encounter. Patient reports that signs and symptoms have been present for 1 day and indicates a pain score of Nonresponsive. MEDICAL/SURGICAL HISTORY: Non-responsive. Non-responsive. RADIATION DOSE: 28.46 CTDI (mGy) ; Combined studies COMPARISON: [facility], CTA CAROTID ARTERIES W 3D RECON, 08/08/2014. . TECHNIQUE: Volumetric scanning was performed using a multirow detector CT scanner during bolus infus ion of 60 ml Visipaque 320 (iodixanol) nonionic water-soluble contrast as a cumulative dose for mult iple exams. The data was postprocessed with a variety of visualization algorithms including full-vo lume maximum intensity projection, multiplanar sliding thin-slab reformation, curved-planar reformati on, and surface-rendering techniques. Using automated exposure control and adjustment of the mA and/ or kV according to patient size, radiation dose was kept as low as reasonably achievable to obtain op timal diagnostic quality images. DICOM format image data is available electronically for review and comparison. Percent stenosis is calculated using the diameter of the stenotic region over the diameter of the nor mal distal internal carotid artery. FINDINGS: Aortic arch: There is normal anatomic branching of the great vessels from the arch. The origins of th e great vessels are widely patent. Right carotid: The common carotid is widely patent. There is densely calcified atherosclerotic plaqui ng at the bifurcation with complete occlusion of the right internal circulation at its origin. There is reconstitution just above the level the clinoid. The right MCA appears widely patent. Left carotid: The left common carotid is widely patent. There is densely calcified atherosclerotic pl aquing at the bifurcation with considerable hard and soft plaque present. This results in stenosis at the origin of the left internal carotid estimated the range of 60-70% by NASCET criteria. The more c ephalad portion of internal carotid is widely patent. Vertebral circulation: Both vertebral arteries appear patent throughout their course. The basilar is widely patent. CONCLUSION: 1. 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 2. Densely calcified plaque with considerable soft plaque present as well the bifurcation on the lef t resulting in stenosis estimated to be in the range of 60-70% involving the origin of the left inter nal carotid. 3. The vertebral circulation is patent bilaterally. Electronically signed by: Romie Lynn MD 03/28/2018 12:06 PM EST
[2018-03-28 12:35] LABS: Amphetamine Screen,Urine Neg (Neg); Barbiturate Screen,Urine Neg (Neg); Bilirubin,Urine Negative (Negative); Cannabinoid Screen,Urine Neg (Neg); Clarity,Urine Clear (Clear); Cocaine Screen,Urine Neg (Neg); Color,Urine Yellow (Yellw/Straw); Glucose,Urine (UA) 500 or Greater mg/dL (Negative); Leukocyte Esterase,Urine Negative (Negative); Mucus,Urine Few /lpf (Occasional); Nitrite,Urine Negative (Negative); Specific Gravity,Urine 1.018 (1.002-1.035)
[2018-03-28 12:42] LABS: Opiate Screen,Urine Neg (Neg)
[2018-03-28] MEDS ORDERED: Dextrose 50% in Water 50 ML Vial IV.PUSH PRN (13:36)
--- NOTE | 2018-03-28 14:25 | ED ---
HPI General Chief Complaint: Stroke Alert Stated Complaint: Stroke Time Seen by Provider: 03/28/18 10:54 History of Present Illness HPI Narrative: This is a 73-year-old male with history of hypertension, hyperlipidemia, diabetes mellitus, presents today with strokelike symptoms. Patient was last seen normal at midnight last night. Patient will With the symptoms. Patient has left upper extremity paralysis, weakness to his left lower extremity, facial droop and dysarthria and mild a aphasia. Patient denies any pain. He is currently only taking aspirin as a blood thinner. There is no other further history could be elicited from the patient. Related Data Home Medications Medication Instructions Recorded Confirmed amlodipine 5 mg PO DAILY 03/28/18 03/28/18 finasteride 5 mg PO DAILY 03/28/18 03/28/18 glipizide 5 mg PO DAILY 03/28/18 03/28/18 simvastatin [Zocor] 40 mg PO QPM 03/28/18 03/28/18 tamsulosin [Flomax] 0.4 mg PO DAILY 03/28/18 03/28/18 Allergies Allergy/AdvReac Type Severity Reaction Status Date / Time niacin Allergy Severe Swelling Verified 03/28/18 11:03 Review of Systems ROS Unobtainable ROS Unobtainable: unobtainable due to mental status (Unable to obtain secondary to patient's presenting status) [facility] Medical History Medical History BPH (benign prostatic hyperplasia) (Acute) Diabetes (Acute) HBP (high blood pressure) (Acute) High cholesterol (Acute) Surgical history unknown (Acute) Social History Social History Substance History: No History of Abuse Second Hand Smoke Exposure: No Smoking Status: Former smoker Tobacco Type: Cigarettes How Often Do You Have a Drink Containing Alcohol: Never Recent Travel in [facility] within the Last 8 Weeks: No Recent Out of Country Travel within the Last 8 Weeks: No Immunization History Tetanus Immunization: >5 Years Exam Narrative Exam Narrative: GENERAL: Well developed well-nourished male in no acute respiratory distress. SKIN: Focused skin assessment warm/dry. HEAD: Atraumatic. Normocephalic. EYES: Extraocular muscles appeared intact. No scleral icterus. No injection or drainage. ENT: No nasal bleeding or discharge. Mucous membranes pink and moist. NECK: Trachea midline. Supple. CARDIOVASCULAR: Regular rate and rhythm. No murmur appreciated. RESPIRATORY: No accessory muscle use. Clear to auscultation. Breath sounds equal bilaterally. GASTROINTESTINAL: Abdomen soft, non-tender, nondistended. Hepatic and splenic margins not palpable. MUSCULOSKELETAL: No obvious deformities. No clubbing. No cyanosis. No edema. NEUROLOGICAL: Awake with dysarthria. Patient has some receptive a aphasia and difficult following commands. 0 out of 5 left upper extremity strength, 3 out of 5 left lower extremity strength, 5 out of 5 right upper and right lower extremity strength. There is a facial droop noted on the left side. Course Initial Documented Vital Signs Temperature 97.8 F 03/28/18 10:50 Pulse Rate 89 03/28/18 10:50 Respiratory Rate 18 03/28/18 10:50 Blood Pressure 123/72 03/28/18 10:50 Pulse Oximetry 98 03/28/18 10:50 Last Documented Vital Signs Temperature 97.8 F 03/28/18 13:58 Pulse Rate 62 03/28/18 13:58 Respiratory Rate 17 03/28/18 13:58 Blood Pressure 139/101 H 03/28/18 13:58 Pulse Oximetry 99 03/28/18 13:58 Critical Care Time Critical Care Time: Yes Total Critical Care Time: 45 Attestation: Aggregate critical care time was 45 minutes. Time to perform other separately billable procedures was not included in the critical care time. My time did not include minutes spent treating any other patients simultaneously or on activities that did not directly contribute to the patient's treatment. The services I provided to this patient were to treat and/or prevent clinically significant deterioration that could result in: I provided critical care services requiring my management, as noted below: Chart data review, documentation time, medication orders and management, vital sign assessments/reviewing monitor data, ordering and reviewing lab tests, ordering and interpreting/reviewing x-rays and diagnostic studies, care of the patient and discussion of the patient with the admitting physicians. NIH Stroke Scale NIH Stroke Scale Level of Consciousness: 0-Alert Orientation Questions: 2-Neither task correct Responds to Commands: 1-One task correct Gaze Eye Movement: 2-Complete gaze palsy Visual Sylvester: 0-No visual field defect Facial Movement: 1-Minor facial palsy Motor Functions Arm LEFT: 3-No effort against gravity Motor Functions Arm RIGHT: 0-No drift Motor Functions Leg LEFT: 1-Drift before 5 seconds Motor Functions Leg RIGHT: 0-No drift Limb Ataxia: 1-Ataxia in one limb Sensory Loss: 1-Mild sensory loss Best Language: 1-Mild aphasia Articulation: 1-Mild dysarthia Extinction or Inattention Sensory: 0-Absent Total: 14 Quality Measure Queries Stroke Last date observed well: 03/27/18 Last time observed well: 21:00 Medical Decision Making MDM Narrative Medical decision making narrative: 73-year-old male with history of hypertension , dyslipidemia, diabetes mellitus, presents as a stroke alert. Patient was made a stroke alert as he was in the 24-hour window for new stroke alert policy. Patient has a subacute stroke noted in his right frontal lobe. CT angiogram shows a completely occluded right carotid artery. There is also 60-70 % stenosis in the left carotid artery. The patient is not a candidate for TPA or clot retrieval. [facility] be [facility] Case was discussed with Dr. Abarca who will admit the patient to the service. Medical Screen Exam Complete: Yes Emergency Medical Condition: Yes Differential Diagnosis Differential Diagnosis: Embolic versus hemorrhagic stroke versus metabolic derangement Lab Data Result diagrams: 03/28/18 10:45 Lab Results 03/28/18 03/28/18 03/28/18 Range/Units 10:45 10:45 10:45 WBC 11.2 H (4.0-11.0) th/mm3 RBC 5.05 (4.50-5.90) mil/mm3 Hgb 14.8 (13.0-17.0) gm/dL POC Hgb (Calc) 15.0 (13.0-17.0) g/dL Hct 44.5 (39.0-51.0) % POC Hct 44.0 (39-51.0) % MCV 88.0 (80.0-100.0) fL MCH 29.2 (27.0-34.0) pg MCHC 33.2 (32.0-36.0) % RDW 14.3 (11.6-17.2) % Plt Count 305 (150-450) th/mm3 MPV 8.2 (7.0-11.0) fL Neut % (Auto) 74.6 H (16.0-70.0) % Lymph % (Auto) 15.1 (9.0-44.0) % Louisa % (Auto) 8.2 H (0.0-8.0) % Eos % (Auto) 1.5 (0.0-4.0) % Baso % (Auto) 0.6 (0.0-2.0) % Neut # (Auto) 8.4 H (1.8-7.7) th/mm3 Lymph # (Auto) 1.7 (1.0-4.8) th/mm3 Louisa # (Auto) 0.9 (0.0-0.9) th/mm3 Eos # (Auto) 0.2 (0.0-0.4) th/mm3 Baso # (Auto) 0.1 (0.0-0.2) th/mm3 WBC Differential . Differential Comment Auto diff final PT 11.0 (9.8-11.6) sec INR 1.1 Ratio APTT 30.9 (23.4-31.7) sec Fibrinogen 474 H (227-377) mg/dL POC Sodium 137 (137-144) mmol/L POC Potassium 3.3 L (3.6-5.0) mmol/L POC Chloride 97 L (102-111) mmol/L POC BUN 17 (5-21) mg/dL POC Creatinine 0.8 (0.6-1.3) mg/dL POC Glucose 183 H (68-110) mg/dL Total Creatine Kinase 369 H (39-308) U/L CK-MB (CK-2) 2.2 (0.5-3.6) ng/mL CK-MB (CK-2) % 0.6 (0.0-4.0) % Troponin I Less than 0.02 L (0.02-0.05) ng/mL Urine Color (Yellw/Straw) Urine Clarity (Clear) Urine pH (5.0-8.5) Ur Specific L[place] (1.002-1.035) Urine Protein (Neg-Trace) mg/dL Urine Glucose (UA) (Negative) mg/dL Urine Ketones (Negative) mg/dL Urine Occult Blood (Negative) Urine Nitrate (Negative) Urine Bilirubin (Negative) Urine Urobilinogen (Less than 2) mg/dL Ur Leukocyte Esterase (Negative) Urine WBC (0-5) /hpf Urine Mucus (Occasional) /lpf Micro UA Comment Ur Microscopic Review Urine Culture Comments Urine Opiates Screen (Neg) Ur Barbiturates Screen (Neg) Ur Amphetamines Screen (Neg) U Benzodiazepines Scrn (Neg) Urine Cocaine Screen (Neg) U Cannabinoids Screen (Neg) Blood Type Blood Type Recheck Antibody Screen 03/28/18 03/28/18 03/28/18 Range/Units 10:55 11:55 11:55 WBC (4.0-11.0) th/mm3 RBC (4.50-5.90) mil/mm3 Hgb (13.0-17.0) gm/dL POC Hgb (Calc) (13.0-17.0) g/dL Hct (39.0-51.0) % POC Hct (39-51.0) % MCV (80.0-100.0) fL MCH (27.0-34.0) pg MCHC (32.0-36.0) % RDW (11.6-17.2) % Plt Count (150-450) th/mm3 MPV (7.0-11.0) fL Neut % (Auto) (16.0-70.0) % Lymph % (Auto) (9.0-44.0) % Louisa % (Auto) (0.0-8.0) % Eos % (Auto) (0.0-4.0) % Baso % (Auto) (0.0-2.0) % Neut # (Auto) (1.8-7.7) th/mm3 Lymph # (Auto) (1.0-4.8) th/mm3 Louisa # (Auto) (0.0-0.9) th/mm3 Eos # (Auto) (0.0-0.4) th/mm3 Baso # (Auto) (0.0-0.2) th/mm3 WBC Differential Differential Comment PT (9.8-11.6) sec INR Ratio APTT (23.4-31.7) sec Fibrinogen (227-377) mg/dL POC Sodium (137-144) mmol/L POC Potassium (3.6-5.0) mmol/L POC Chloride (102-111) mmol/L POC BUN (5-21) mg/dL POC Creatinine (0.6-1.3) mg/dL POC Glucose 169 H (68-110) mg/dL Total Creatine Kinase (39-308) U/L CK-MB (CK-2) (0.5-3.6) ng/mL CK-MB (CK-2) % (0.0-4.0) % Troponin I (0.02-0.05) ng/mL Urine Color Yellow (Yellw/Straw) Urine Clarity Clear (Clear) Urine pH 6.0 (5.0-8.5) Ur Specific [place] 1.018 (1.002-1.035) Urine Protein 30 H (Neg-Trace) mg/dL Urine Glucose (UA) 500 or greater (Negative) mg/dL Urine Ketones Negative (Negative) mg/dL Urine Occult Blood Negative (Negative) Urine Nitrate Negative (Negative) Urine Bilirubin Negative (Negative) Urine Urobilinogen Less than 2 (Less than 2) mg/dL Ur Leukocyte Esterase Negative (Negative) Urine WBC 1 (0-5) /hpf Urine Mucus Few H (Occasional) /lpf Micro UA Comment Cath-culture not ind Ur Microscopic Review Not Reportable Urine Culture Comments Cath-cult not ind Urine Opiates Screen Neg (Neg) Ur Barbiturates Screen Neg (Neg) Ur Amphetamines Screen Neg (Neg) U Benzodiazepines Scrn Neg (Neg) Urine Cocaine Screen Neg (Neg) U Cannabinoids Screen Neg (Neg) Blood Type Blood Type Recheck Antibody Screen 03/28/18 Range/Units 12:40 WBC (4.0-11.0) th/mm3 RBC (4.50-5.90) mil/mm3 Hgb (13.0-17.0) gm/dL POC Hgb (Calc) (13.0-17.0) g/dL Hct (39.0-51.0) % POC Hct (39-51.0) % MCV (80.0-100.0) fL MCH (27.0-34.0) pg MCHC (32.0-36.0) % RDW (11.6-17.2) % Plt Count (150-450) th/mm3 MPV (7.0-11.0) fL Neut % (Auto) (16.0-70.0) % Lymph % (Auto) (9.0-44.0) % Louisa % (Auto) (0.0-8.0) % Eos % (Auto) (0.0-4.0) % Baso % (Auto) (0.0-2.0) % Neut # (Auto) (1.8-7.7) th/mm3 Lymph # (Auto) (1.0-4.8) th/mm3 Louisa # (Auto) (0.0-0.9) th/mm3 Eos # (Auto) (0.0-0.4) th/mm3 Baso # (Auto) (0.0-0.2) th/mm3 WBC Differential Differential Comment PT (9.8-11.6) sec INR Ratio APTT (23.4-31.7) sec Fibrinogen (227-377) mg/dL POC Sodium (137-144) mmol/L POC Potassium (3.6-5.0) mmol/L POC Chloride (102-111) mmol/L POC BUN (5-21) mg/dL POC Creatinine (0.6-1.3) mg/dL POC Glucose (68-110) mg/dL Total Creatine Kinase (39-308) U/L CK-MB (CK-2) (0.5-3.6) ng/mL CK-MB (CK-2) % (0.0-4.0) % Troponin I (0.02-0.05) ng/mL Urine Color (Yellw/Straw) Urine Clarity (Clear) Urine pH (5.0-8.5) Ur Specific L[place] (1.002-1.035) Urine Protein (Neg-Trace) mg/dL Urine Glucose (UA) (Negative) mg/dL Urine Ketones (Negative) mg/dL Urine Occult Blood (Negative) Urine Nitrate (Negative) Urine Bilirubin (Negative) Urine Urobilinogen (Less than 2) mg/dL Ur Leukocyte Esterase (Negative) Urine WBC (0-5) /hpf Urine Mucus (Occasional) /lpf Micro UA Comment Ur Microscopic Review Urine Culture Comments Urine Opiates Screen (Neg) Ur Barbiturates Screen (Neg) Ur Amphetamines Screen (Neg) U Benzodiazepines Scrn (Neg) Urine Cocaine Screen (Neg) U Cannabinoids Screen (Neg) Blood Type A Positive Blood Type Recheck Required Antibody Screen Negative Imaging Data Radiologist's impression: Chest X-Ray 03/28/18 10:54 CONCLUSION: Elevation of the left hemidiaphragm. Chronic interstitial changes within the pulmonary parenchyma Head CT 03/28/18 10:54 CONCLUSION: 1. Probable subacute stroke right orbital frontal region 2. Probably calcification basal ganglia bilaterally. Cannot entirely exclude hemorrhage 3. Findings were discussed with Dr. Michelle while on the scanner. Head CTA 03/28/18 10:54 CONCLUSION: 1. Rapid perfusion imaging demonstrates evolving cortical infarction the watershed distribution posteriorly on the right. 2. No large or central vessel occlusion identified. Neck CTA 03/28/18 10:54 CONCLUSION: 1. 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 2. Densely calcified plaque with considerable soft plaque present as well the bifurcation on the left resulting in stenosis estimated to be in the range of 60 -70% involving the origin of the left internal carotid. 3. The vertebral circulation is patent bilaterally. CT CAD 03/28/18 11:04 CONCLUSION: Physiological brain perfusion parameters with RAPID analysis as above. The decision for consideration of therapy is multi factorial and multi disciplinary relying on subjective and objective clinical data. This data is not construed or intended to be the sole determinant of treatment eligibility. Discharge Plan Discharge Disposition Patient Disposition: 30 Still Patient Discharge Details Diagnosis: Acute ischemic stroke, Hypertension, Dyslipidemia, Diabetes mellitus Physicians Team ED Provider: Nate Michelle Primary Care Provider: UNKNOWN, Attending Provider: Tracie Abarca Other Providers: Yaritza Sampson ; Caron Rodriguez Discharge Interventions Interventions: Vital Signs Last Done: 03/28/18 12:54 Status ED Status: Admitted Patient
[2018-03-28] MEDS: Enoxaparin Inj 40 MG/0.4 ML Syringe SQ SCH (15:37)
--- NOTE | 2018-03-28 17:31 | ECHRPT ---
Indication: CVA/TIA CONCLUSIONS The left ventricular systolic function is low normal with an estimated ejection fraction in the rang e of 50- 55%. Mild concentric left ventricular hypertrophy. Aortic valve sclerosis is present. No aortic valve regurgitation. BP: / HR: Rhythm: Sinus MEASUREMENTS (Male / Female) Normal Values Technical Quality:Very technically difficult study DOPPLER AV Peak Velocity 110.0 cm/s AV Peak Gradient 4.8 mmHg AV Mean Gradient 3.0 mmHg AV Velocity Time Integral 20.6 cm LVOT Peak Velocity 81.2 cm/s LVOT Peak Gradient 2.6 mmHg LVOT Velocity Time Integral 15.8 cm Mitral E Point Velocity 65.2 cm/s Mitral A Point Velocity 97.2 cm/s Mitral E to A Ratio 0.7 LV E' Lateral Velocity 11.5 cm/s Mitral E to LV E' Lateral Ratio 5.7 LV E' Septal Velocity 4.8 cm/s Mitral E to LV E' Septal Ratio 13.6 FINDINGS LEFT VENTRICLE The left ventricular systolic function is low normal with an estimated ejection fraction in the rang e of 50- 55%. Mild concentric left ventricular hypertrophy. RIGHT VENTRICLE Normal right ventricular size and systolic function. LEFT ATRIUM The left atrial size is normal. RIGHT ATRIUM The right atrium is not well visualized. ATRIAL SEPTUM The interatrial septum not well visualized. AORTA The aortic root and proximal ascending aorta are not well visualized. MITRAL VALVE Structurally normal mitral valve. No mitral valve stenosis or regurgitation. AORTIC VALVE Aortic valve sclerosis is present. No aortic valve regurgitation. TRICUSPID VALVE The tricuspid valve is not well visualized. PULMONARY VALVE The pulmonary valve is not well visualized. VESSELS The inferior vena cava was not well visualized. PERICARDIUM No pericardial effusion. Reymundo Mazariegos MD, FACC (Electronically Signed) Final Date:28 March 2018 17:30
[2018-03-28] MEDS: Insulin NovoLOG Aspart Correctional Sugar Inj SQ SCH ×2 (17:59→21:25)
--- NOTE | 2018-03-28 18:02 | P.HPIM ---
[facility] of [facility] Chief Complaint: Confusion and left-sided weakness History of Present Illness: 73-year-old white male with a history of hypertension, hyperlipidemia, diabetes mellitus type 2 was in his usual state of health and last seen well last night was found by family members today with symptoms of confusion, left-sided weakness, left facial droop and slurred speech. At this time, patient is seen in the intensive care unit with persistent confusion. He denies any other symptoms of abdominal pain chest pain or any shortness of breath. Due to his confusion, I am unable to get much more history from him. Past medical records was reviewed. Diagnosis (1) Acute ischemic stroke: (2) Hypertension: (3) Dyslipidemia: (4) Diabetes mellitus: Inpatient Certification Inpatient Certification: I certify that the inpatient services were ordered in accordance with Medicare regulations governing the order. This includes certification that hospital inpatient services are reasonable and necessary and in the case of services not specified as inpatient-only under 42 CFR 419.22(n), that they are appropriately provided as inpatient services in accordance to with the 2-midnight benchmark under 43 CFR 412.3(e) Estimated Total Length of Stay (Days): 3 Plans for Post Hospital Care: Not yet determined Review of Systems ROS Unobtainable ROS Unobtainable: unobtainable due to mental status PMFSH Medical History Medical History BPH (benign prostatic hyperplasia) (Chronic) Diabetes (Chronic) HBP (high blood pressure) (Chronic) High cholesterol (Chronic) Surgical History Surgical History Surgical history unknown (Acute) Family History Family History Mother Diabetes Social History Social History Substance History: No History of Abuse Second Hand Smoke Exposure: No Smoking Status: Former smoker Tobacco Type: Cigarettes How Often Do You Have a Drink Containing Alcohol: Never Recent Travel in [place] within the Last 8 Weeks: No Recent Out of Country Travel within the Last 8 Weeks: No Immunization History Tetanus Immunization: >5 Years Medications and Allergies Allergies Allergy/AdvReac Type Severity Reaction Status Date / Time niacin Allergy Severe Swelling Verified 03/28/18 11:03 Home Medications Medication Instructions Recorded Confirmed Type amlodipine 5 mg PO DAILY 03/28/18 03/28/18 History finasteride 5 mg PO DAILY 03/28/18 03/28/18 History glipizide 5 mg PO DAILY 03/28/18 03/28/18 History simvastatin [Zocor] 40 mg PO QPM 03/28/18 03/28/18 History tamsulosin [Flomax] 0.4 mg PO DAILY 03/28/18 03/28/18 History Active Medications: Active Medications Aspirin (Aspirin Chew) 81 mg PO DAILY [facility] Clopidogrel Bisulfate (Plavix) 75 mg PO DAILY [facility] Last Admin: 03/28/18 17:58 Dose: Not Given Dextrose (D50w Vial) 50 ml IV.PUSH UNSCH PRN PRN Reason: PER HYPOGLYCEMIA PROTOCOL Enalaprilat (Vasotec Inj) 1.25 mg IV.PUSH Q4H PRN PRN Reason: For SBP > 220 or DBP > 120 Enoxaparin Sodium (Lovenox Inj) 40 mg SQ Q24H [facility] Last Admin: 03/28/18 15:37 Dose: 40 mg Finasteride (Proscar) 5 mg PO DAILY [facility] Glucagon (Glucagon Inj) 1 mg OTHER UNSCH PRN PRN Reason: for Hypoglycemia Protocol Sodium Chloride (Ns Inj) 1,000 mls @ 70 mls/hr IV.CONT .[id number] [facility] Last Admin: 03/28/18 11:35 Dose: 70 mls/hr Sodium Chloride (Ns Inj) 1,000 mls @ 70 mls/hr IV.CONT .[id number] [facility] Last Admin: 03/28/18 14:18 Dose: Not Given Insulin Aspart (Novolog Insulin Correctional Sugar Inj) 0 unit SQ ACHS [facility]; Protocol Last Admin: 03/28/18 17:59 Dose: 1 unit Pravastatin Sodium (Pravachol) 80 mg PO HS [facility] Sodium Chloride (Ns Flush) 2 ml IV.FLUSH PRN PRN PRN Reason: FLUSH AFTER USING IV ACCESS Last Admin: 03/28/18 13:56 Dose: 2 ml Sodium Chloride (Ns Flush) 2 ml IV.FLUSH BID [facility] Tamsulosin HCl (Flomax) 0.4 mg PO DAILY [facility] Physical Exam Vital signs: Last Vital Signs Temp 97.7 F 03/28/18 16:00 Pulse 73 03/28/18 16:00 Resp 17 03/28/18 16:00 BP 156/86 H 03/28/18 16:00 Pulse Ox 99 03/28/18 16:00 Intake & Output 03/26/18 03/27/18 03/28/18 03/29/18 06:59 06:59 06:59 06:59 Weight 74.843 kg Narrative: GENERAL: Well nourished well-developed white male laying flat in no acute distress SKIN: Warm and dry. HEAD: Atraumatic. Normocephalic. EYES: Pupils equal and round. No scleral icterus. No injection or drainage. ENT: No nasal bleeding or discharge. Mucous membranes pink and moist. NECK: Trachea midline. No JVD. CARDIOVASCULAR: Regular rate and rhythm. RESPIRATORY: No accessory muscle use. Clear to auscultation. Breath sounds equal bilaterally. GASTROINTESTINAL: Abdomen soft, non-tender, nondistended. Hepatic and splenic margins not palpable. Normoactive bowel sounds MUSCULOSKELETAL: Extremities without clubbing, cyanosis, or edema. No obvious deformities. NEUROLOGICAL: Awake and alert to person, place but not to time and thought was November 2017. Mild left facial droop. Left upper extremity flaccid, left lower extremity, 3 out of 5 in motor strength, right upper and lower extremity 5 out of 5 motor strength, normal speech PSYCHIATRIC: Unable to assess Assessment and Plan (1) Acute ischemic stroke: Code(s): I63.9 - Cerebral infarction, unspecified Status: Acute (2) Hypertension: Code(s): I10 - Essential (primary) hypertension Status: Chronic (3) Dyslipidemia: Code(s): E78.5 - Hyperlipidemia, unspecified Status: Chronic (4) Diabetes mellitus: Code(s): E11.9 - Type 2 diabetes mellitus without complications Status: Chronic Plan 73-year-old white male with a history of diabetes mellitus type 2, hypertension , hyperlipidemia presents the emergency room with findings of left-sided weakness, confusion, left facial droop with slurred speech 1. Acute CVA -status post stroke alert in the emergency room with confirmed findings on imaging workup. Initiate Plavix, neurology consultation, consult PT OT speech therapist, continue statin check hemoglobin A1c and fasting lipid profile 2. Left internal carotid stenosis with complete occlusion of right internal carotid-Plavix, vascular surgery consult 3. History of hyperlipidemia, continue statin check fasting profile 4. Hypertension historywe will hold home amlodipine due to acute stroke and for permissive perfusion 5. Diabetes mellitus, type IIhold glipizide due to n.p.o. status until swallow evaluation can be completed. Continue monitor blood sugar and coverage with sliding scale insulin 6. History of BPHcontinue with Flomax 7. DVT prophylaxisLovenox _ (1) Hypertension Qualifiers: Hypertension type: unspecified Qualified Code(s): I10 - Essential (primary) hypertension (2) Diabetes mellitus Qualifiers: Chronic kidney disease stage: Diabetes mellitus complication detail: Diabetes mellitus complication status: with neurologic complications Diabetes mellitus intermediate insulin use: unspecified terminal gauger insulin use status Diabetes mellitus macular edema: Diabetes mellitus type: type 2 Diabetic retinopathy severity: Laterality: Proliferative retinopathy type:
--- NOTE | 2018-03-28 18:49 | MB ---
cc: Yaritza Sampson MD DATE: 03/28/2018 REASON FOR CONSULTATION: Stroke. HISTORY OF PRESENT ILLNESS: This is a 73-year-old man with a history of hypertension, hyperlipidemia, diabetes, last seen normal around midnight, who comes in with left-sided deficits and slurred speech. He takes an aspirin a day. [facility] He has a history of BPH, diabetes, hypertension, hyperlipidemia. SOCIAL HISTORY: He is an ex-smoker of cigarettes. He does not drink. No drugs. FAMILY HISTORY: Noncontributory. ALLERGIES: NIACIN. MEDICATIONS: Please refer to his MAR. PHYSICAL EXAMINATION: VITAL SIGNS: His temperature is 97.7, pulse 73, respiratory rate 17, blood pressure 156/86, saturating at 99% on 3 liters. NECK: Supple. HEART: Regular. NEUROLOGIC: He is awake, alert, somewhat confused, tries to follow commands. Pupils reactive. There is some asymmetry of right face. He has left upper extremity 0/5, left leg 3/5. Right side is intact. DTRs are trace, left toe up. Gait is withheld. Does not follow for cerebellar. LABORATORY DATA: Labs are reviewed. White count 11.2, hemoglobin 14.8, hematocrit 44.5, platelets 302,000. Coag panel reviewed. Chemistries: Potassium 3.3, glucose 183. CK 369. Tox screen negative. Urine: 30 protein. IMAGING: Neck CTA shows complete occlusion of right ICA at its origin. There is also densely calcified plaque with considerable soft tissue present as well at the bifurcation of the left, resulting in about 60%-70% stenosis. Vertebral arteries are intact. [place] shows evolving cortical infarct in the watershed distribution on the right. No large vessel occlusion in the head. Head CT shows what looks like a subacute stroke of right orbital frontal region, some basal ganglionic calcifications. IMPRESSION: 1. Right hemispheric stroke with left hemiparesis. 2. Right carotid occlusion with 60%-70% left carotid. 3. Hypertension. 4. Hyperlipidemia. Recommendations are to obtain an MRI of the brain to better delineate the size of the stroke. Get physical therapy, occupational therapy, and speech therapy. Instead of aspirin, he can be switched to clopidogrel. He will need a swallow evaluation prior. Rehab consult, lipid panel, permissible hypertension. Sequential compression devices and subcutaneous heparin for deep venous thrombosis prevention. Further recommendations as needed, but will likely need rehabilitation. MD TUAN Steele/herbie , 05:48 PM , 05:58 PM
--- NOTE | 2018-03-28 21:36 | MB ---
cc: Renate Gomes MD DATE: 03/28/2018 CONSULTING PHYSICIAN: Renate Gomes MD of vascular surgery. REASON FOR CONSULTATION: Right internal carotid artery occlusion, left carotid stenosis, right hemispheric stroke with left hemiplegia, and hypertension. CRITICAL CARE TIME: 34 minutes. HISTORY OF PRESENT ILLNESS: This is a 73-year-old male who normally is followed by the [facility] for his medical problems ensue and diabetes mellitus. Apparently came early this morning with signs and symptoms of a right hemispheric stroke manifested by left-sided weakness, slurred speech, and alter mental status. The patient has been worked up and a vascular surgery consult is sought. PAST MEDICAL HISTORY: Diabetes mellitus, hypertension, hyperlipidemia, all of them sort of poorly managed apparently on the outside. SURGICAL HISTORY: I do not have. I do think the patient has had any surgery. SOCIAL HISTORY: The patient smoked until about 2 years ago, a pack a day. Does not drink. PHYSICAL EXAMINATION: GENERAL: Reveals a pleasant 73-year-old gentleman, awake, alert, but slightly disoriented. HEENT: Normocephalic. No trauma to the head. Pupils are equal and reactive. Extraocular muscles are intact. The patient has slurred speech and drooping of his right corner of the face and palpebral. NECK: Bilateral carotid pulses. No bruits. I just by exam, I cannot tell if internal carotid is actually occluded. CHEST: Bilateral breath sounds, decreased audible along both lung flores consistent with some moderate degree of COPD, barrel chest tenderness. HEART: Regular rate and rhythm. ABDOMEN: Soft, slightly obese. Active bowel sounds. No rebound, no guarding, no masses. PELVIS: Stable. EXTREMITIES: The patient has palpable femoral pulses, Doppler popliteal pulses, and dorsalis pedis are absent posterior tibial by Doppler. Feet are slightly cyanotic, but no acute vascular deficit is noted. Atrophy of the musculature of both legs. NEUROLOGIC: The patient is awake, alert, but slightly confused, is conscious of the fact that he had a stroke. Cranial nerves are grossly intact except for right-sided weakness of the face and drooping of the right side and right palpebral. Methodically, patient is clearly weaker on the left side. There is no motion in the left arm and left leg is about 2/4 with the weakened reflexes. IMPRESSION AND RECOMMENDATIONS: Right internal carotid artery occlusion, resulting in a right hemispheric stroke with left-sided body symptoms. Severe atherosclerotic disease in the brain. Left carotid stenosis, about 70%. Based on the above findings, this gentleman will eventually need a left carotid endarterectomy in the face of right occlusion; however, this should not be at this time. Considering the patient's active symptoms, he should be allowed to recover about 3 to 4 weeks, and then we will revaluate him. At this point, the patient should be ready for a left carotid endarterectomy. In the past, included waiting about 6 to 8 weeks still functional maximal recovery was not reached and stuff like that and this never ended well because patients would have repeated strokes and never end up having surgery. In this particular situation, I believe waiting for about 3 weeks is reasonable, and then we will see how the patient does. If he recover sufficiently, we will go ahead with a left carotid endarterectomy, which again is not the cause of his symptoms, but in the face of right-sided occlusion becomes a more pressing problem. I thank you very much for referral. I will continue to follow the patient with you. MD TRENTON Allen/em , 07:32 PM , 07:42 PM
[2018-03-28] MEDS ORDERED: Magnesium Sulfate Inj 4 GM in Sodium Chlor 0.9% Inj 92 ML IV.SIG PRN (23:08)
[2018-03-28] MEDS ORDERED: Magnesium Oxide 400 MG Tablet PO PRN (23:08)
[2018-03-28] MEDS ORDERED: Potassium Phosphate 500 MG Soluble Tablet PO PRN ×2 (23:08)
[2018-03-28] MEDS ORDERED: Sodium Phosphate Inj 30 MMOL in Sodium Chlor 0.9% Inj 250 ML IV.SIG PRN (23:08)
[2018-03-28] MEDS ORDERED: Potassium Chloride 25 MEQ Effervescent Tablet PO PRN (23:08)
[2018-03-28] MEDS ORDERED: Potassium Chlor 40 mEq Premix 40 MEQ/100 ML PIGGYBACK IV.SIG PRN ×2 (23:08)
[2018-03-28] MEDS ORDERED: Magnesium Sulfate Inj 2 GM in Sodium Chlor 0.9% Inj 96 ML IV.SIG PRN (23:08)
[2018-03-28] MEDS ORDERED: Potassium Chlor 20 mEq Premix 20 MEQ/100 ML PIGGYBACK IV.SIG PRN ×2 (23:08)
[2018-03-28] MEDS ORDERED: Potassium Phosphate Inj 30 MMOL in Sodium Chlor 0.9% Inj 250 ML IV.SIG PRN (23:08)
[2018-03-29 00:12] LABS: Anion Gap 10 meq/L (5-15); Blood Urea Nitrogen 9 mg/dL (7-18); Calcium 8.2 mg/dL (8.5-10.1); Chloride 101 meq/L (98-107); Glomerular Filtration Rate Greater Than 89 mL/min (>89); Glucose,Random 145 mg/dL (74-106); Magnesium 1.9 mg/dL (1.5-2.5); Potassium 3.4 meq/L (3.5-5.1); Sodium 136 meq/L (136-145)
[2018-03-29] MEDS: Sod Chloride 0.9% Inj 1,000 ML IV.CONT SCH ×4 (02:26→18:23)
[2018-03-29 06:11] LABS: Chol/HDL Ratio 3.6 Ratio; HDL Cholesterol 33.3 mg/dL (40.0-60.0)
[2018-03-29] MEDS: Insulin NovoLOG Aspart Correctional Sugar Inj SQ SCH ×4 (08:58→20:18)
--- NOTE | 2018-03-29 10:25 | P.PNVS ---
Subjective Subjective/Hospital Course: 04/15/2018 Right internal carotid artery occlusion, resulting in a right hemispheric stroke with left-sided body symptoms. Severe atherosclerotic disease in the brain. Left carotid stenosis, about 70%. Based on the above findings, this gentleman will eventually need a left carotid endarterectomy in the face of right occlusion; however, this should not be at this time. Considering the patient's active symptoms, he should be allowed to recover about 3 to 4 weeks, and then we will revaluate him. At this point, the patient should be ready for a left carotid endarterectomy. In the past, established dictum included waiting about 6 to 8 weeks still functional maximal recovery was not reached and stuff like that and this never ended well because patients would have repeated strokes and never end up having surgery. In this particular situation, I believe waiting for about 3 weeks is reasonable , and then we will see how the patient does. If he recover sufficiently, we will go ahead with a left carotid endarterectomy, which again is not the cause of his symptoms, but in the face of right-sided occlusion becomes a more pressing problem for now this is the only remaining major blood supply to the brain other than small vertebral arteries. I thank you very much for referral. I will continue to follow the patient with you Objective Vital Signs / I&O: Vital Signs 03/28/18 10:50 03/28/18 11:17 03/28/18 12:12 Temperature 97.8 F 97.8 F 97.7 F Pulse Rate 89 94 H 85 Respiratory Rate 18 17 16 Blood Pressure 123/72 123/92 H 170/85 H Pulse Oximetry 98 98 98 03/28/18 12:54 03/28/18 13:37 03/28/18 13:58 Temperature 99.2 F 97.8 F Pulse Rate 87 85 62 Respiratory Rate 21 17 Blood Pressure 160/89 H 139/101 H Pulse Oximetry 99 99 03/28/18 16:00 03/28/18 16:34 03/28/18 17:00 Temperature 97.7 F Pulse Rate 73 71 Respiratory Rate 17 14 Blood Pressure 156/86 H 133/66 Pulse Oximetry 99 67 L 99 03/28/18 17:01 03/28/18 17:26 03/28/18 18:00 Temperature Pulse Rate 71 81 77 Respiratory Rate 14 28 H 27 H Blood Pressure 165/77 H 168/85 H Pulse Oximetry 99 99 94 L 03/28/18 18:26 03/28/18 19:00 03/28/18 20:00 Temperature 98 F Pulse Rate 71 69 84 Respiratory Rate 19 19 28 H Blood Pressure 147/86 H Pulse Oximetry 92 L 94 L 95 03/28/18 20:26 03/28/18 21:00 03/28/18 21:26 Temperature Pulse Rate 81 81 84 Respiratory Rate 31 H 29 H Blood Pressure 148/72 H 182/86 H Pulse Oximetry 96 96 95 03/28/18 22:00 03/28/18 22:26 03/28/18 23:00 Temperature Pulse Rate 84 84 86 Respiratory Rate 22 24 20 Blood Pressure 161/123 H Pulse Oximetry 98 97 96 03/28/18 23:14 03/28/18 23:31 03/29/18 00:00 Temperature Pulse Rate 86 92 H 89 Respiratory Rate 22 31 H 27 H Blood Pressure 164/77 H 171/83 H Pulse Oximetry 97 97 96 03/29/18 00:26 03/29/18 01:00 03/29/18 01:26 Temperature Pulse Rate 89 84 89 Respiratory Rate 25 H 16 21 Blood Pressure 181/85 H 162/81 H Pulse Oximetry 96 93 L 95 03/29/18 02:00 03/29/18 02:26 03/29/18 03:00 Temperature Pulse Rate 75 84 84 Respiratory Rate 25 H 24 27 H Blood Pressure 159/84 H Pulse Oximetry 94 L 95 95 03/29/18 03:26 03/29/18 04:00 03/29/18 07:55 Temperature 97.5 F L Pulse Rate 87 83 Respiratory Rate 26 H 21 Blood Pressure 182/79 H Pulse Oximetry 94 L 95 93 L 03/29/18 08:00 Temperature Pulse Rate Respiratory Rate Blood Pressure Pulse Oximetry 90 L Intake & Output 03/28/18 03/29/18 03/29/18 18:59 06:59 18:59 Intake Total 0 / 0 1065 / 1065 Output Total 475 / 475 Balance 0 / 0 590 / 590 Weight 74.843 kg 77.5 kg Intake: IV 965 / 965 NS Inj 1,000 ML @ 70 mls/hr IV. 965 / 965 CONT .[id number] Rx#:[id number] Oral 0 / 0 100 / 100 Output: Urine Amount (Catheter) 475 / 475 Condom 475 / 475 Other: # Voids 1 Date of Last Bowel Movement 03/28/18 03/28/18 # Incontinent Bowel Movements 2 Weight On Admission 78.9 kg Laboratory Results - last 24 hr 03/28/18 03/28/18 03/28/18 10:45 10:45 10:45 WBC 11.2 H RBC 5.05 Hgb 14.8 POC Hgb (Calc) 15.0 Hct 44.5 POC Hct 44.0 MCV 88.0 MCH 29.2 MCHC 33.2 RDW 14.3 Plt Count 305 MPV 8.2 Neut % (Auto) 74.6 H Lymph % (Auto) 15.1 [place] % (Auto) 8.2 H Eos % (Auto) 1.5 Baso % (Auto) 0.6 Neut # (Auto) 8.4 H Lymph # (Auto) 1.7 [place] # (Auto) 0.9 Eos # (Auto) 0.2 Baso # (Auto) 0.1 WBC Differential . Differential Comment Auto diff final PT 11.0 INR 1.1 APTT 30.9 Fibrinogen 474 H POC Sodium 137 Sodium POC Potassium 3.3 L Potassium POC Chloride 97 L Chloride Carbon Dioxide Anion Gap POC BUN 17 BUN Creatinine POC Creatinine 0.8 Estimated GFR POC Glucose 183 H Random Glucose Calcium Magnesium Total Creatine Kinase 369 H CK-MB (CK-2) 2.2 CK-MB (CK-2) % 0.6 Troponin I Less than 0.02 L Triglycerides Cholesterol LDL Cholesterol, Calc HDL Cholesterol Cholesterol/HDL Ratio Urine Color Urine Clarity Urine pH Ur Specific [place] Urine Protein Urine Glucose (UA) Urine Ketones Urine Occult Blood Urine Nitrate Urine Bilirubin Urine Urobilinogen Ur Leukocyte Esterase Urine WBC Urine Mucus Micro UA Comment Ur Microscopic Review Urine Culture Comments Urine Opiates Screen Ur Barbiturates Screen Ur Amphetamines Screen U Benzodiazepines Scrn Urine Cocaine Screen U Cannabinoids Screen Blood Type Blood Type Recheck Antibody Screen 03/28/18 03/28/18 03/28/18 10:55 11:55 11:55 WBC RBC Hgb POC Hgb (Calc) Hct POC Hct MCV MCH MCHC RDW Plt Count MPV Neut % (Auto) Lymph % (Auto) [place] % (Auto) Eos % (Auto) Baso % (Auto) Neut # (Auto) Lymph # (Auto) [place] # (Auto) Eos # (Auto) Baso # (Auto) WBC Differential Differential Comment PT INR APTT Fibrinogen POC Sodium Sodium POC Potassium Potassium POC Chloride Chloride Carbon Dioxide Anion Gap POC BUN BUN Creatinine POC Creatinine Estimated GFR POC Glucose 169 H Random Glucose Calcium Magnesium Total Creatine Kinase CK-MB (CK-2) CK-MB (CK-2) % Troponin I Triglycerides Cholesterol LDL Cholesterol, Calc HDL Cholesterol Cholesterol/HDL Ratio Urine Color Yellow Urine Clarity Clear Urine pH 6.0 Ur Specific [place] 1.018 Urine Protein 30 H Urine Glucose (UA) 500 or greater Urine Ketones Negative Urine Occult Blood Negative Urine Nitrate Negative Urine Bilirubin Negative Urine Urobilinogen Less than 2 Ur Leukocyte Esterase Negative Urine WBC 1 Urine Mucus Few H Micro UA Comment Cath-culture not ind Ur Microscopic Review Not Reportable Urine Culture Comments Cath-cult not ind Urine Opiates Screen Neg Ur Barbiturates Screen Neg Ur Amphetamines Screen Neg U Benzodiazepines Scrn Neg Urine Cocaine Screen Neg U Cannabinoids Screen Neg Blood Type Blood Type Recheck Antibody Screen 03/28/18 03/28/18 03/28/18 12:40 17:52 21:24 WBC RBC Hgb POC Hgb (Calc) Hct POC Hct MCV MCH MCHC RDW Plt Count MPV Neut % (Auto) Lymph % (Auto) [place] % (Auto) Eos % (Auto) Baso % (Auto) Neut # (Auto) Lymph # (Auto) [place] # (Auto) Eos # (Auto) Baso # (Auto) WBC Differential Differential Comment PT INR APTT Fibrinogen POC Sodium Sodium POC Potassium Potassium POC Chloride Chloride Carbon Dioxide Anion Gap POC BUN BUN Creatinine POC Creatinine Estimated GFR POC Glucose 161 H 132 H Random Glucose Calcium Magnesium Total Creatine Kinase CK-MB (CK-2) CK-MB (CK-2) % Troponin I Triglycerides Cholesterol LDL Cholesterol, Calc HDL Cholesterol Cholesterol/HDL Ratio Urine Color Urine Clarity Urine pH Ur Specific [place] Urine Protein Urine Glucose (UA) Urine Ketones Urine Occult Blood Urine Nitrate Urine Bilirubin Urine Urobilinogen Ur Leukocyte Esterase Urine WBC Urine Mucus Micro UA Comment Ur Microscopic Review Urine Culture Comments Urine Opiates Screen Ur Barbiturates Screen Ur Amphetamines Screen U Benzodiazepines Scrn Urine Cocaine Screen U Cannabinoids Screen Blood Type A Positive Blood Type Recheck Required Antibody Screen Negative 03/28/18 03/29/18 03/29/18 23:45 04:35 07:48 WBC RBC Hgb POC Hgb (Calc) Hct POC Hct MCV MCH MCHC RDW Plt Count MPV Neut % (Auto) Lymph % (Auto) [place] % (Auto) Eos % (Auto) Baso % (Auto) Neut # (Auto) Lymph # (Auto) [place] # (Auto) Eos # (Auto) Baso # (Auto) WBC Differential Differential Comment PT INR APTT Fibrinogen POC Sodium Sodium 136 POC Potassium Potassium 3.4 L POC Chloride Chloride 101 Carbon Dioxide 25.0 Anion Gap 10 POC BUN BUN 9 Creatinine 0.58 L POC Creatinine Estimated GFR Greater than 89 POC Glucose 156 H Random Glucose 145 H Calcium 8.2 L Magnesium 1.9 Total Creatine Kinase CK-MB (CK-2) CK-MB (CK-2) % Troponin I Triglycerides 180 H Cholesterol 120 LDL Cholesterol, Calc 51 HDL Cholesterol 33.3 L Cholesterol/HDL Ratio 3.60 Urine Color Urine Clarity Urine pH Ur Specific [place] Urine Protein Urine Glucose (UA) Urine Ketones Urine Occult Blood Urine Nitrate Urine Bilirubin Urine Urobilinogen Ur Leukocyte Esterase Urine WBC Urine Mucus Micro UA Comment Ur Microscopic Review Urine Culture Comments Urine Opiates Screen Ur Barbiturates Screen Ur Amphetamines Screen U Benzodiazepines Scrn Urine Cocaine Screen U Cannabinoids Screen Blood Type Blood Type Recheck Antibody Screen Impressions Chest X-Ray 03/28/18 10:54 CONCLUSION: Elevation of the left hemidiaphragm. Chronic interstitial changes within the pulmonary parenchyma Head CT 03/28/18 10:54 CONCLUSION: 1. Probable subacute stroke right orbital frontal region 2. Probably calcification basal ganglia bilaterally. Cannot entirely exclude hemorrhage 3. Findings were discussed with Dr. Michelle while on the scanner. Head CTA 03/28/18 10:54 CONCLUSION: 1. Rapid perfusion imaging demonstrates evolving cortical infarction the watershed distribution posteriorly on the right. 2. No large or central vessel occlusion identified. Neck CTA 03/28/18 10:54 CONCLUSION: 1. 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 2. Densely calcified plaque with considerable soft plaque present as well the bifurcation on the left resulting in stenosis estimated to be in the range of 60 -70% involving the origin of the left internal carotid. 3. The vertebral circulation is patent bilaterally. CT CAD 03/28/18 11:04 CONCLUSION: Physiological brain perfusion parameters with RAPID analysis as above. The decision for consideration of therapy is multi factorial and multi disciplinary relying on subjective and objective clinical data. This data is not construed or intended to be the sole determinant of treatment eligibility.
--- NOTE | 2018-03-29 10:53 | MR ---
EXAM DATE: 03/29/2018 10:36 AM EST AGE/SEX: 73 years / Male INDICATIONS: Slurred speech. CLINICAL DATA: This is the patient's initial encounter. Patient reports that signs and symptoms have been present for 2 days and indicates a pain score of 0/10. MEDICAL/SURGICAL HISTORY: Hypertension. Diabetes mellitus type II. BPH. . Ulcer cauterization . COMPARISON: [facility] [place]/O [place]AST, 05/03/2012. [facility] [place], [place] CEREBRAL PERF W CONTRAST W 3D, 04/2018. . TECHNIQUE: Multiplanar, multisequence examination of the brain was performed without contrast. FINDINGS: There is evidence of extensive signal abnormalities involving the right frontal, temporal and parieta l lobes on the diffusion-weighted images indicating acute infarction involving the right middle cereb ral artery distribution. No acute hemorrhage is noted. Moderate periventricular and subcortical white matter small vessel ischemic changes are noted bilaterally. Old tiny lacunar infarcts are noted with in the right basal ganglia. Mild cerebral atrophy is noted. Old lacunar infarcts are noted within th e central and right saloni also. No midline shift is noted. No extra-axial bleed is noted. CONCLUSION: 1. Evidence of extensive signal abnormalities involving the right frontal, temporal and parietal lob es on the diffusion-weighted images indicating acute infarction involving the right middle cerebral a rtery distribution. No acute hemorrhage is noted. 2. Moderate periventricular and subcortical white matter small vessel ischemic changes are noted yolanda aterally. 3. Old tiny lacunar infarcts are noted within the right basal ganglia. 4. Mild cerebral atrophy is noted. 5. Old lacunar infarcts are noted within the central and right saloni also. Electronically signed by: Tate Soliman MD 03/29/2018 10:52 AM EST
[2018-03-29] MEDS: Finasteride 5 MG Tablet PO SCH (10:56)
--- NOTE | 2018-03-29 12:46 | ECG ---
Date Performed: 03/28/2018 Time Performed: 11:39:15 PTAGE: 73 years EKG: Sinus rhythm WITH FREQUENT VENTRICULAR PREMATURE COMPLEXES INTRAVENTRICULAR CONDUCTION DELAY SEPTAL MYOCARDIAL IN FARCTION PROBABLE LATERAL MYOCARDIAL INFARCTION ABNORMAL ECG Since the PREVIOUS TRACING , no significant change noted PREVIOUS TRACIN08/19/2014 12.51 DOCTOR: Beatrice Doss Interpretating Date/Time 03/29/2018 12:45:15
--- NOTE | 2018-03-29 15:28 | P.PNIM ---
Subjective Interval history: Patient reports no headache. Still laying flat on bed. No other concerns at this time. Feels slightly hungry. Physical Exam Vital signs: Last Vital Signs Temp 98.1 F 03/29/18 12:00 Pulse 86 03/29/18 12:00 Resp 25 H 03/29/18 12:00 BP 146/74 H 03/29/18 11:26 Pulse Ox 96 03/29/18 12:00 Intake & Output 03/27/18 03/28/18 03/29/18 03/30/18 06:59 06:59 06:59 06:59 Intake Total 1065 / 1065 Output Total 475 / 475 Balance 590 / 590 Weight 77.5 kg Narrative: GENERAL: This is a well-nourished, well-developed patient, in no apparent distress. CARDIOVASCULAR: Regular rate and rhythm RESPIRATORY: Clear to auscultation. Breath sounds equal bilaterally. No wheezes , rales, or rhonchi. GASTROINTESTINAL: Abdomen soft, non-tender, nondistended. Normal active bowel sounds MUSCULOSKELETAL: Extremities without clubbing, cyanosis, or edema. NEURO: Alert & Oriented x4 to person, place, time, left lower leg with 3 out of 5 motor strength left upper arm flaccid. Answers question appropriately. 5 out of 5 motor strength right upper and lower extremities, left facial droop unchanged Urinary Catheter Management Straight: Cath placed during this visit: yes, but has since been removed by the nurse Insertion date: 03/28/18 Insertion time: 11:55 Removal date: 03/28/18 Removal time: 11:56 Condom: Cath placed during this visit: no Results Labs CBC & Chem 7: 03/28/18 10:45 03/28/18 23:45 Imaging Imaging: Impressions Head MRI 03/29/18 07:03 CONCLUSION: 1. Evidence of extensive signal abnormalities involving the right frontal, temporal and parietal lobes on the diffusion-weighted images indicating acute infarction involving the right middle cerebral artery distribution. No acute hemorrhage is noted. 2. Moderate periventricular and subcortical white matter small vessel ischemic changes are noted bilaterally. 3. Old tiny lacunar infarcts are noted within the right basal ganglia. 4. Mild cerebral atrophy is noted. 5. Old lacunar infarcts are noted within the central and right saloni also. Assessment and Plan Plan 73-year-old white male with a history of diabetes mellitus type 2, hypertension , hyperlipidemia presents the emergency room with findings of left-sided weakness, confusion, left facial droop with slurred speech 1. Acute CVA -status post stroke alert in the emergency room with confirmed findings on imaging workup. Continue Plavix, appreciate neurology recommendations, consult PT OT speech therapist, continue statin hemoglobin A1c currently pending and fasting lipid profile shows LDL 51 2. Left internal carotid stenosis with complete occlusion of right internal carotid-Plavix, appreciate vascular surgery recommendations, will follow up in office 3-4 weeks to evaluate for intervention. 3. History of hyperlipidemia, continue statin 4. Hypertension historywe will continue hold home amlodipine due to acute stroke and for permissive perfusion 5. Diabetes mellitus, type IIhold glipizide due to n.p.o. status until swallow evaluation can be completed. Continue monitor blood sugar and coverage with sliding scale insulin, currently awaiting to complete swallow evaluation 6. History of BPHcontinue with Flomax 7. DVT prophylaxisLovenox Consider transferring out of intensive care unit in the next 12-24 hours he was stable but
[2018-03-29] MEDS: Enoxaparin Inj 40 MG/0.4 ML Syringe SQ SCH (16:35)
[2018-03-29 17:25] LABS: Hemoglobin A1c 8.1 % (4.3-6.0)
[2018-03-30] MEDS: Sod Chloride 0.9% Inj 1,000 ML IV.CONT SCH (08:43)
--- NOTE | 2018-03-30 08:49 | P.PNVS ---
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 Severe atherosclerotic disease in the brain. Left carotid stenosis, about 70%. Based on the above findings, this gentleman will eventually need a left carotid endarterectomy in the face of right occlusion; however, this should not be at this time. Considering the patient's active symptoms, he should be allowed to recover about 3 to 4 weeks, and then we will revaluate him. At this point, the patient should be ready for a left carotid endarterectomy. In the past, established dictum included waiting about 6 to 8 weeks still functional maximal recovery was not reached and stuff like that and this never ended well because patients would have repeated strokes and never end up having surgery. In this particular situation, I believe waiting for about 3 weeks is reasonable , and then we will see how the patient does. If he recover sufficiently, we will go ahead with a left carotid endarterectomy, which again is not the cause of his symptoms, but in the face of right-sided occlusion becomes a more pressing problem for now this is the only remaining major blood supply to the brain other than small vertebral arteries. I thank you very much for referral. I will continue to follow the patient with you 03/30/2018 Neurologically patient is unchanged he seems to be moving more strongly his left leg and there is some function in the left arm which was completely flaccid when patient initially came in MRI of the brain confirms the previous diagnosis of a large right frontotemporoparietal stroke in the distribution of middle cerebral artery as a result of occlusion of the right carotid artery Again at this point patient is not candidate for any surgery however in the future he will have to have his left internal carotid artery attended to considering the high degree of stenosis and this being the only remaining good flow to the brain Cardiac echo reveals about 55% ejection fraction which is reasonable and this makes patient moderate risk candidate for surgery considering his comorbidities. Patient should go to rehab/correction and I will see him in about 3 weeks in my office at which point we will going to decide when to proceed with left carotid endarterectomy for this is now a more pressing problem than it would be had the right side not occluded Objective Vital Signs / I&O: Vital Signs 03/29/18 09:00 03/29/18 09:04 03/29/18 09:26 Temperature Pulse Rate 85 85 85 Respiratory Rate 26 H 23 24 Blood Pressure 119/71 163/79 H Pulse Oximetry 93 L 93 L 93 L 03/29/18 10:00 03/29/18 11:00 03/29/18 11:02 Temperature Pulse Rate 85 85 86 Respiratory Rate 25 H 22 22 Blood Pressure 130/53 L Pulse Oximetry 93 L 93 L 93 L 03/29/18 11:26 03/29/18 12:00 03/29/18 12:26 Temperature 98.1 F Pulse Rate 82 86 87 Respiratory Rate 24 22 22 Blood Pressure 146/74 H 150/74 H Pulse Oximetry 92 L 96 97 03/29/18 13:00 03/29/18 13:26 03/29/18 13:37 Temperature Pulse Rate 90 89 88 Respiratory Rate 23 22 Blood Pressure 144/77 H Pulse Oximetry 96 95 03/29/18 14:00 03/29/18 14:26 03/29/18 15:00 Temperature Pulse Rate 88 87 87 Respiratory Rate 22 22 24 Blood Pressure 156/76 H Pulse Oximetry 96 95 95 03/29/18 15:26 03/29/18 16:00 03/29/18 16:26 Temperature 98.6 F Pulse Rate 92 H 90 88 Respiratory Rate 24 23 20 Blood Pressure 177/84 H 166/75 H Pulse Oximetry 96 97 97 03/29/18 17:00 03/29/18 17:26 03/29/18 18:00 Temperature Pulse Rate 88 90 98 H Respiratory Rate 21 23 25 H Blood Pressure 200/86 H Pulse Oximetry 97 94 L 94 L 03/29/18 18:26 03/29/18 19:00 03/29/18 19:26 Temperature Pulse Rate 87 91 H 90 Respiratory Rate 21 32 H 24 Blood Pressure 132/63 156/74 H Pulse Oximetry 94 L 94 L 94 L 03/29/18 19:33 03/29/18 20:00 03/29/18 20:26 Temperature 100 F H Pulse Rate 89 92 H Respiratory Rate 22 18 Blood Pressure 174/82 H 174/82 H Pulse Oximetry 98 97 99 03/29/18 21:00 03/29/18 21:26 03/29/18 22:00 Temperature Pulse Rate 87 93 H 83 Respiratory Rate 17 23 16 Blood Pressure 186/88 H Pulse Oximetry 98 96 98 03/29/18 22:32 03/29/18 23:00 03/29/18 23:26 Temperature Pulse Rate 87 86 90 Respiratory Rate 22 31 H 30 H Blood Pressure 156/70 H 171/81 H Pulse Oximetry 97 98 97 03/30/18 00:00 03/30/18 00:26 03/30/18 00:37 Temperature 98.9 F Pulse Rate 87 85 84 Respiratory Rate 20 27 H 31 H Blood Pressure 194/90 H 183/93 H Pulse Oximetry 97 99 99 03/30/18 01:00 03/30/18 01:26 03/30/18 02:00 Temperature Pulse Rate 85 88 86 Respiratory Rate 17 18 37 H Blood Pressure 188/86 H Pulse Oximetry 99 96 88 L 03/30/18 02:26 03/30/18 03:00 03/30/18 03:26 Temperature Pulse Rate 77 76 80 Respiratory Rate 23 16 24 Blood Pressure 190/92 H 183/88 H Pulse Oximetry 97 97 96 03/30/18 04:00 03/30/18 04:26 03/30/18 04:43 Temperature 99.8 F H Pulse Rate 88 89 93 H Respiratory Rate 19 18 19 Blood Pressure 194/93 H 189/87 H Pulse Oximetry 97 98 94 L 03/30/18 05:00 03/30/18 05:26 03/30/18 06:00 Temperature Pulse Rate 92 H 92 H 83 Respiratory Rate 19 21 16 Blood Pressure 167/92 H Pulse Oximetry 95 96 95 Intake & Output 03/29/18 03/30/18 03/30/18 18:59 06:59 18:59 Intake Total 50 / 50 1000 / 1000 Output Total 900 / 900 Balance 50 / 50 -900 / -900 1000 / 1000 Weight 77.6 kg Intake: IV 1000 / 1000 NS Inj 1,000 ML @ 70 mls/hr IV. 1000 / 1000 CONT .[id number] [facility] Rx#:[id number] Oral 50 / 50 Output: Urine Amount (Catheter) 900 / 900 Condom 900 / 900 Other: # Incontinent Voids 2 Date of Last Bowel Movement 03/28/18 03/28/18 # Incontinent Bowel Movements 1 Laboratory Results - last 24 hr 03/29/18 03/29/18 03/29/18 04:35 12:12 18:08 POC Glucose 160 H 160 H Hemoglobin A1c 8.1 H 03/29/18 20:48 POC Glucose 156 H Hemoglobin A1c Impressions Chest X-Ray 03/28/18 10:54 CONCLUSION: Elevation of the left hemidiaphragm. Chronic interstitial changes within the pulmonary parenchyma Head CT 03/28/18 10:54 CONCLUSION: 1. Probable subacute stroke right orbital frontal region 2. Probably calcification basal ganglia bilaterally. Cannot entirely exclude hemorrhage 3. Findings were discussed with Dr. Michelle while on the scanner. Head CTA 03/28/18 10:54 CONCLUSION: 1. Rapid perfusion imaging demonstrates evolving cortical infarction the watershed distribution posteriorly on the right. 2. No large or central vessel occlusion identified. Neck CTA 03/28/18 10:54 CONCLUSION: 1. 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 2. Densely calcified plaque with considerable soft plaque present as well the bifurcation on the left resulting in stenosis estimated to be in the range of 60 -70% involving the origin of the left internal carotid. 3. The vertebral circulation is patent bilaterally. CT CAD 03/28/18 11:04 CONCLUSION: Physiological brain perfusion parameters with RAPID analysis as above. The decision for consideration of therapy is multi factorial and multi disciplinary relying on subjective and objective clinical data. This data is not construed or intended to be the sole determinant of treatment eligibility. Head MRI 03/29/18 07:03 CONCLUSION: 1. Evidence of extensive signal abnormalities involving the right frontal, temporal and parietal lobes on the diffusion-weighted images indicating acute infarction involving the right middle cerebral artery distribution. No acute hemorrhage is noted. 2. Moderate periventricular and subcortical white matter small vessel ischemic changes are noted bilaterally. 3. Old tiny lacunar infarcts are noted within the right basal ganglia. 4. Mild cerebral atrophy is noted. 5. Old lacunar infarcts are noted within the central and right saloni also.
[2018-03-30] MEDS: Insulin NovoLOG Aspart Correctional Sugar Inj SQ SCH ×4 (08:51→21:21)
[2018-03-30] MEDS: Finasteride 5 MG Tablet PO SCH (10:23)
--- NOTE | 2018-03-30 14:28 | P.PNIM ---
Physical Exam Vital signs: Last Vital Signs Temp 98 F 03/30/18 12:00 Pulse 78 03/30/18 12:00 Resp 17 03/30/18 12:00 BP 101/55 L 03/30/18 12:00 Pulse Ox 95 03/30/18 12:00 Intake & Output 03/28/18 03/29/18 03/30/18 03/31/18 06:59 06:59 06:59 06:59 Intake Total 1065 / 1065 50 / 50 1000 / 1000 Output Total 475 / 475 900 / 900 Balance 590 / 590 -850 / -850 1000 / 1000 Weight 77.5 kg 77.6 kg Narrative: GENERAL: This is a well-nourished, well-developed patient, in no apparent distress. CARDIOVASCULAR: Regular rate and rhythm RESPIRATORY: Clear to auscultation. Breath sounds equal bilaterally. No wheezes , rales, or rhonchi. GASTROINTESTINAL: Abdomen soft, non-tender, nondistended. Normal active bowel sounds MUSCULOSKELETAL: Extremities without clubbing, cyanosis, or edema. NEURO: Alert & Oriented x4 to person, place, time, left lower leg with 3 out of 5 motor strength ,left upper arm flaccid. Answers question appropriately. 5 out of 5 motor strength right upper and lower extremities, left facial droop unchanged Urinary Catheter Management Straight: Cath placed during this visit: yes, but has since been removed by the nurse Insertion date: 03/28/18 Insertion time: 11:55 Removal date: 03/28/18 Removal time: 11:56 Condom: Cath placed during this visit: no Results Labs CBC & Chem 7: 03/28/18 10:45 03/28/18 23:45 Assessment and Plan Plan 73-year-old white male with a history of diabetes mellitus type 2, hypertension , hyperlipidemia presents the emergency room with findings of left-sided weakness, confusion, left facial droop with slurred speech 1. Acute CVA -status post stroke alert in the emergency room with confirmed findings on imaging workup. Continue Plavix, appreciate neurology recommendations, consult PT OT speech therapist, continue statin hemoglobin A1c 8.1 and fasting lipid profile shows LDL 51 2. Left internal carotid stenosis with complete occlusion of right internal carotid-Plavix, appreciate vascular surgery recommendations, will follow up in office 3-4 weeks to evaluate for intervention. 3. History of hyperlipidemia, continue statin 4. Hypertension historywill restart amlodipine 5. Diabetes mellitus, type IIpassed swallow evaluation start a diet today. Well monitor blood sugar trends and cover with SSI, start levemir 6. History of BPHcontinue with Flomax 7. DVT prophylaxisLovenox Transfer out of the intensive care unit
[2018-03-30] MEDS: Enoxaparin Inj 40 MG/0.4 ML Syringe SQ SCH (15:51)
[2018-03-30] MEDS: Insulin Detemir Inj 1,000 UNIT/10 ML Vial SQ SCH (21:21)
[2018-03-31] MEDS: Insulin NovoLOG Aspart Correctional Sugar Inj SQ SCH ×4 (08:25→21:08)
[2018-03-31] MEDS: Finasteride 5 MG Tablet PO SCH (08:25)
--- NOTE | 2018-03-31 09:50 | P.PN ---
Subjective Interval history: still confused but follows commands Physical Exam Vital signs: Vital Signs 03/30/18 10:00 03/30/18 11:00 03/30/18 12:00 Temperature 98 F Pulse Rate 87 82 78 Respiratory Rate 19 15 17 Blood Pressure 170/80 H 101/55 L Pulse Oximetry 98 97 95 03/30/18 13:00 03/30/18 14:00 03/30/18 14:06 Temperature Pulse Rate 86 85 Respiratory Rate 23 21 Blood Pressure 131/63 143/74 H 175/86 H Pulse Oximetry 94 L 89 L 03/30/18 15:00 03/30/18 16:00 03/30/18 17:00 Temperature 98.4 F 98.5 F Pulse Rate 85 86 85 Respiratory Rate 18 22 20 Blood Pressure 146/71 H 157/77 H 154/70 H Pulse Oximetry 92 L 95 97 03/30/18 20:00 03/30/18 22:16 03/31/18 00:00 Temperature 98.6 F 98.1 F Pulse Rate 68 89 87 Respiratory Rate 16 20 Blood Pressure 130/60 136/67 Pulse Oximetry 92 L 92 L 03/31/18 04:00 03/31/18 08:00 Temperature 98.8 F 98 F Pulse Rate 72 67 Respiratory Rate 18 16 Blood Pressure 154/81 H 150/83 H Pulse Oximetry 94 L 95 Intake & Output 03/30/18 03/31/18 03/31/18 18:59 06:59 18:59 Intake Total 1120 / 1120 Output Total 350 / 350 500 / 500 Balance 770 / 770 -500 / -500 Intake: IV 1000 / 1000 NS Inj 1,000 ML @ 70 mls/hr IV. 1000 / 1000 CONT .[id number] Rx#:[id number] Oral 120 / 120 Output: Urine 350 / 350 500 / 500 Other: Date of Last Bowel Movement 03/28/18 # Bowel Movements 0 # Incontinent Bowel Movements 2 - Constitutional no acute distress - Routine Neurological Exam awake right gaze slurred follows commands left arm 0/5 left leg 4/5 gait unable to test - Urinary Catheter Management Straight Cath placed during this visit: yes, but has since been removed by the nurse Reason for continuing: Decision to DC catheter Insertion date: 03/28/18 Insertion time: 11:55 Removal date: 03/28/18 Removal time: 11:56 Condom Cath placed during this visit: no Results - Labs CBC & Chem 7: 03/28/18 10:45 03/28/18 23:45 Laboratory Results - last 24 hr 03/30/18 03/30/18 03/30/18 11:55 17:16 21:18 POC Glucose 151 H 131 H 141 H 03/31/18 07:19 POC Glucose 89 Assessment and Plan - Plan Asa plavix pt-ot-st rehab risk factor modification-bp,lipids and dm f/u outpt w/vascular for left carotid in a few weeks. dc planning rehab soon.
--- NOTE | 2018-03-31 12:17 | P.PNIM ---
Subjective Interval history: Opens eyes to voice and answers questions appropriately. Tells me she is not in any pain. Physical Exam Vital signs: Last Vital Signs Temp 98 F 03/31/18 08:00 Pulse 67 03/31/18 08:00 Resp 16 03/31/18 08:00 BP 150/83 H 03/31/18 08:00 Pulse Ox 95 03/31/18 08:00 Intake & Output 03/29/18 03/30/18 03/31/18 04/01/18 06:59 06:59 06:59 06:59 Intake Total 1065 / 1065 50 / 50 1120 / 1120 Output Total 475 / 475 900 / 900 850 / 850 Balance 590 / 590 -850 / -850 270 / 270 Weight 77.5 kg 77.6 kg Narrative: GENERAL: This is a well-nourished, well-developed patient, in no apparent distress. CARDIOVASCULAR: Regular rate and rhythm RESPIRATORY: Clear to auscultation. Breath sounds equal bilaterally. No wheezes , rales, or rhonchi. GASTROINTESTINAL: Abdomen soft, non-tender, nondistended. Normal active bowel sounds MUSCULOSKELETAL: Extremities without clubbing, cyanosis, or edema. NEURO: Alert & Oriented x4 to person, place, time, left lower leg with 3 out of 5 motor strength ,left upper arm flaccid. Answers question appropriately. 5 out of 5 motor strength right upper and lower extremities, left facial droop unchanged Urinary Catheter Management Straight: Cath placed during this visit: yes, but has since been removed by the nurse Insertion date: 03/28/18 Insertion time: 11:55 Removal date: 03/28/18 Removal time: 11:56 Condom: Cath placed during this visit: no Results Labs CBC & Chem 7: 03/28/18 10:45 03/28/18 23:45 Assessment and Plan (1) Acute ischemic stroke: Code(s): I63.9 - Cerebral infarction, unspecified Status: Acute Plan 73-year-old white male with a history of diabetes mellitus type 2, hypertension , hyperlipidemia presents the emergency room with findings of left-sided weakness, confusion, left facial droop with slurred speech 1. Acute CVA -status post stroke alert in the emergency room with confirmed findings on imaging workup. Continue Plavix, appreciate neurology recommendations, consult PT OT speech therapist, continue statin hemoglobin A1c 8.1 and fasting lipid profile shows LDL 51 Currently on pured diet 2. Left internal carotid stenosis with complete occlusion of right internal carotid-Plavix, appreciate vascular surgery recommendations, will follow up in office 3-4 weeks to evaluate for intervention. 3. History of hyperlipidemia, continue statin 4. Hypertension historycontinue amlodipine, add lisinopril due to history of diabetes mellitus type 2 5. Diabetes mellitus, type IIoverall controlled Monitor blood sugar trends and cover with SSI, continue Levemir 6. History of BPHcontinue with Flomax 7. DVT prophylaxisLovenox
[2018-03-31] MEDS: Sod Chloride 0.9% Inj 1,000 ML IV.CONT SCH ×2 (13:28→17:36)
[2018-03-31] MEDS: Enoxaparin Inj 40 MG/0.4 ML Syringe SQ SCH (17:43)
[2018-03-31] MEDS ORDERED: Lisinopril 5 MG Tablet PO SCH (21:00)
[2018-03-31] MEDS: Insulin Detemir Inj 1,000 UNIT/10 ML Vial SQ SCH (21:07)
[2018-04-01] MEDS: Sod Chloride 0.9% Inj 1,000 ML IV.CONT SCH (03:48)
[2018-04-01 08:06] VITALS: RESP 18; O2SAT 94
[2018-04-01] MEDS: Insulin NovoLOG Aspart Correctional Sugar Inj SQ SCH ×2 (08:12→11:46)
[2018-04-01] MEDS: Finasteride 5 MG Tablet PO SCH (08:12)
[2018-04-01] MEDS ORDERED: amLODIPine 5 MG Tablet PO SCH (10:00)
[2018-04-01] MEDS ORDERED: Lisinopril 5 MG Tablet PO SCH (10:00)
--- NOTE | 2018-04-01 10:10 | P.DS ---
DS: Providers Date of admission: 03/28/18 14:06 Primary care physician: UNKNOWN Consults: 03/28/18 10:54 Consult to Neurology Stat Consulting Provider: Yaritza Daniel For STAT consult, spoke directly to:: dr. daniel [employer] Control Room Operator:: Yaritza Daniel Reason for Consultation: Brain Attack Notified:: Service Spoke with:: RYLEY Date Notified:: 03/28/18 Time Notified:: 12:16 Comments:: Ordering Provider: MARCO 03/28/18 13:37 Consult to Neurology Routine Consulting Provider: Yaritza Daniel Reason for Consultation: Ischemic Stroke Notified:: Office Spoke with:: Neha Date Notified:: 03/28/18 Time Notified:: 13:44 Ordering Provider: REGINO Consult to Rehab Medicine Routine Consulting Provider: Caron Rodriguez Reason for Consultation: Stroke patient, assist with Rehab recommendations Notified:: Service Spoke with:: Patrizia Date Notified:: 03/28/18 Time Notified:: 13:47 Ordering Provider: REGINO 03/28/18 18:15 Consult to Vascular Surgery Routine Consulting Provider: Renate Gomes Reason for Consultation: carotid stenosis, acute cva Notified:: Physician Spoke with:: Dr Dickens Date Notified:: 03/28/18 Time Notified:: 18:18 Ordering Provider: REGINO Brief History from admission: 73-year-old white male with a history of hypertension, hyperlipidemia, diabetes mellitus type 2 was in his usual state of health and last seen well last night was found by family members today with symptoms of confusion, left-sided weakness, left facial droop and slurred speech. At this time, patient is seen in the intensive care unit with persistent confusion. He denies any other symptoms of abdominal pain chest pain or any shortness of breath. Due to his confusion, I am unable to get much more history from him. Past medical records was reviewed. DS: Diagnosis Discharge Diagnosis (1) Acute ischemic stroke: Status: Acute (2) Hypertension: Status: Chronic (3) Diabetes mellitus: Status: Chronic DS: Summary 73-year-old white male with a history of hypertension and hyperlipidemia was admitted for acute CVA status post stroke alert in the emergency room. He was placed on Plavix and aspirin per neurology recommendations. PT, OT, speech therapist was consulted in which a swallow evaluation was performed with recommendations of a pured diet. He was also found to have a left internal carotid stenosis with complete occlusion of the right internal carotid with vascular surgery recommendations and follow-up in the office in 3-4 weeks to evaluate for intervention. For his hyperlipidemia, statin was continued with LDL 51. For his hypertension history, patient shows uncontrolled blood pressure and lisinopril was added to his amlodipine regimen. For his diabetes mellitus type 2, his home glipizide was discontinued. He had a hemoglobin A1c of 8.1. He was initiated on metformin with Levemir with recommendation to continue to adjust therapy based on blood sugar trends. At this time, patient has gained maximum benefit from hospitalization and is ready to be transition to inpatient rehab. Time Spent with Patient Total time spent providing and/or coordinating discharge services: Less than 30 minutes Quality: Stroke Last date observed well: 03/27/18 Last time observed well: 21:00 Exam Narrative Exam Narrative: GENERAL: This is a well-nourished, well-developed patient, in no apparent distress. CARDIOVASCULAR: Regular rate and rhythm RESPIRATORY: Clear to auscultation. Breath sounds equal bilaterally. No wheezes , rales, or rhonchi. GASTROINTESTINAL: Abdomen soft, non-tender, nondistended. Normal active bowel sounds MUSCULOSKELETAL: Extremities without clubbing, cyanosis, or edema. NEURO: Alert & Oriented x4 to person, place, time, left lower leg with 3 out of 5 motor strength ,left upper arm flaccid. Answers question appropriately. 5 out of 5 motor strength right upper and lower extremities, left facial droop unchanged Results Labs on day of discharge: Labs from last 24 hours 04/01/18 03/31/18 03/31/18 07:23 20:58 17:36 POC Glucose 85 232 H 171 H 03/31/18 12:14 POC Glucose 78 Impressions ITS Impressions Chest X-Ray 03/28/18 10:54 CONCLUSION: Elevation of the left hemidiaphragm. Chronic interstitial changes within the pulmonary parenchyma Head CT 03/28/18 10:54 CONCLUSION: 1. Probable subacute stroke right orbital frontal region 2. Probably calcification basal ganglia bilaterally. Cannot entirely exclude hemorrhage 3. Findings were discussed with Dr. Michelle while on the scanner. Head CTA 03/28/18 10:54 CONCLUSION: 1. Rapid perfusion imaging demonstrates evolving cortical infarction the watershed distribution posteriorly on the right. 2. No large or central vessel occlusion identified. Neck CTA 03/28/18 10:54 CONCLUSION: 1. 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 2. Densely calcified plaque with considerable soft plaque present as well the bifurcation on the left resulting in stenosis estimated to be in the range of 60 -70% involving the origin of the left internal carotid. 3. The vertebral circulation is patent bilaterally. CT CAD 03/28/18 11:04 CONCLUSION: Physiological brain perfusion parameters with RAPID analysis as above. The decision for consideration of therapy is multi factorial and multi disciplinary relying on subjective and objective clinical data. This data is not construed or intended to be the sole determinant of treatment eligibility. Head MRI 03/29/18 07:03 CONCLUSION: 1. Evidence of extensive signal abnormalities involving the right frontal, temporal and parietal lobes on the diffusion-weighted images indicating acute infarction involving the right middle cerebral artery distribution. No acute hemorrhage is noted. 2. Moderate periventricular and subcortical white matter small vessel ischemic changes are noted bilaterally. 3. Old tiny lacunar infarcts are noted within the right basal ganglia. 4. Mild cerebral atrophy is noted. 5. Old lacunar infarcts are noted within the central and right saloni also. Discharge Plan Discharge Disposition Patient Disposition: 62 Rehab Inpatient Discharge Condition Condition: Good Discharge Order Discharge Orders: Discharge Order (Routine); Ordered 04/01/18 Ordered By: Tracie Abarca Discharge Details Anticipated Discharge Date: 04/01/18 Physicians Team Primary Care Provider: UNKNOWN, Attending Provider: Tracie Abarca Other Providers: Yaritza Daniel ; Caron Rodriguez ; Renate Gomes Rxs /Orders / Referrals /Forms Prescriptions: New insulin aspart U-100 [Novolog U-100 Insulin aspart] 100 unit/mL Solution subcut ACHS Qty: 10 RF: 0 insulin detemir U-100 [Levemir U-100 Insulin] 100 unit/mL Solution 10 unit subcut HS 30 Days Qty: 3 RF: 0 lisinopril 5 mg Tablet 5 mg PO HS Qty: 30 RF: 0 metformin [Glucophage] 500 mg Tablet 500 mg PO BIDPC Qty: 60 RF: 0 Continue amlodipine 5 mg Tablet 5 mg PO DAILY RF: 0 simvastatin [Zocor] 40 mg Tablet 40 mg PO QPM RF: 0 tamsulosin [Flomax] 0.4 mg Capsule 0.4 mg PO DAILY RF: 0 finasteride 5 mg Tablet 5 mg PO DAILY RF: 0 Discontinued glipizide 5 mg Tablet 5 mg PO DAILY RF: 0 Referrals: Renate Gomes MD [Physician] - See Instructions ( Please call the physician's office to book the appointment to be seen within [3 to 4 weeks].) UNKNOWN, [Primary Care Provider] - See Instructions Discharge Interventions Interventions: Discharge Planning - Case Management Last Done: 03/31/18 16:04 Status ED Status: Left Department
--- NOTE | 2018-04-01 11:00 | P.PNVS ---
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 Severe atherosclerotic disease in the brain. Left carotid stenosis, about 70%. Based on the above findings, this gentleman will eventually need a left carotid endarterectomy in the face of right occlusion; however, this should not be at this time. Considering the patient's active symptoms, he should be allowed to recover about 3 to 4 weeks, and then we will revaluate him. At this point, the patient should be ready for a left carotid endarterectomy. In the past, established dictum included waiting about 6 to 8 weeks still functional maximal recovery was not reached and stuff like that and this never ended well because patients would have repeated strokes and never end up having surgery. In this particular situation, I believe waiting for about 3 weeks is reasonable , and then we will see how the patient does. If he recover sufficiently, we will go ahead with a left carotid endarterectomy, which again is not the cause of his symptoms, but in the face of right-sided occlusion becomes a more pressing problem for now this is the only remaining major blood supply to the brain other than small vertebral arteries. I thank you very much for referral. I will continue to follow the patient with you 03/30/2018 Neurologically patient is unchanged he seems to be moving more strongly his left leg and there is some function in the left arm which was completely flaccid when patient initially came in MRI of the brain confirms the previous diagnosis of a large right frontotemporoparietal stroke in the distribution of middle cerebral artery as a result of occlusion of the right carotid artery Again at this point patient is not candidate for any surgery however in the future he will have to have his left internal carotid artery attended to considering the high degree of stenosis and this being the only remaining good flow to the brain Cardiac echo reveals about 55% ejection fraction which is reasonable and this makes patient moderate risk candidate for surgery considering his comorbidities. Patient should go to rehab/care home and I will see him in about 3 weeks in my office at which point we will going to decide when to proceed with left carotid endarterectomy for this is now a more pressing problem than it would be had the right side not occluded 04/01/2018 Patient with a dense right hemispheric stroke due to right internal carotid artery occlusion and left hemiplegia In addition patient has a left internal carotid artery 70% stenosis At this point patient is slowly recovering Patient will be evaluated in my office in about a month in which point we will assess for functional recovery and decide on further care as far as the left carotid artery is concerned. At this point left internal carotid arteries the only major blood supply to the brain and provided patient recovers sufficiently from the right hemispheric stroke he should be a candidate for left carotid endarterectomy in the future but I would leave another 3-4 weeks before we do anything Unfortunately a great proportion of these patients will deteriorate progressively and will not be candidates for any surgery in the future We will see patient in my office in about 3-4 weeks We will sign off at this time Objective Vital Signs / I&O: Vital Signs 03/31/18 12:00 03/31/18 16:00 03/31/18 20:00 Temperature 98.5 F 98.3 F 98.8 F Pulse Rate 64 82 84 Respiratory Rate 16 16 20 Blood Pressure 166/75 H 156/92 H 198/90 H Pulse Oximetry 95 95 98 03/31/18 20:01 04/01/18 00:00 04/01/18 04:00 Temperature 98.1 F 97.3 F L Pulse Rate 85 70 67 Respiratory Rate 20 20 19 Blood Pressure 153/73 H 162/80 H Pulse Oximetry 95 96 04/01/18 08:00 04/01/18 09:20 Temperature 98.6 F Pulse Rate 71 Respiratory Rate 18 Blood Pressure 169/81 H Pulse Oximetry 94 L 94 L Intake & Output 03/31/18 04/01/18 04/01/18 18:59 06:59 18:59 Intake Total 1360 / 1360 1000 / 1000 Balance 1360 / 1360 1000 / 1000 Intake: IV 1000 / 1000 1000 / 1000 NS Inj 1,000 ML @ 70 mls/hr IV. 1000 / 1000 1000 / 1000 CONT .[id number] [facility] Rx#:[id number] Oral 360 / 360 Other: # Incontinent Voids 2 # Urine Diapers 2 Date of Last Bowel Movement 03/31/18 03/31/18 03/31/18 # Bowel Movements 1 # Incontinent Bowel Movements 1 Laboratory Results - last 24 hr 03/31/18 03/31/18 03/31/18 12:14 17:36 20:58 POC Glucose 78 171 H 232 H 04/01/18 07:23 POC Glucose 85
[2018-04-01 11:36] VITALS: BP 154/74; PULSE 81; TEMP 98.3
[2018-04-01] MEDS ORDERED: Loperamide 2 MG Capsule PO ONE (12:05)
[2018-04-01] MEDS ORDERED: Lactobacillus Acidophilus/L. Spores Tablet PO ONE (12:05)
[2018-04-01] MEDS: Enoxaparin Inj 40 MG/0.4 ML Syringe SQ SCH (15:03)
== END 2018-04-01 16:05 | DRG 64 ==
LOC: NEPC 10:47 → NEDA 14:06 → N03 16:20 → N05 03-30 17:06
PROVIDERS: ADMIT Family Medicine; ATTEND Family Medicine
DX: I12.9 Hypertensive chronic kidney disease with stage 1 through stage 4 chronic kidney disease, or unspecified chronic kidney disease; G93.49 Other encephalopathy; Z83.3 Family history of diabetes mellitus; E78.5 Hyperlipidemia, unspecified; I67.2 Cerebral atherosclerosis; R29.810 Facial weakness; I25.10 Atherosclerotic heart disease of native coronary artery without angina pectoris; G81.94 Hemiplegia, unspecified affecting left nondominant side; I63.231 Cerebral infarction due to unspecified occlusion or stenosis of right carotid arteries; N40.0 Benign prostatic hyperplasia without lower urinary tract symptoms; R47.01 Aphasia; R29.714 NIHSS score 14; Z87.891 Personal history of nicotine dependence; Z79.84 Long term (current) use of oral hypoglycemic drugs; I63.511 Cerebral infarction due to unspecified occlusion or stenosis of right middle cerebral artery; E78.00 Pure hypercholesterolemia, unspecified; R47.1 Dysarthria and anarthria; E11.9 Type 2 diabetes mellitus without complications; I65.22 Occlusion and stenosis of left carotid artery
CPT/HCPCS: 0042T; 70450; 70496; 70498; 70551; 71010; 71045; 76497; 76499; 76937; 80048; 80061; 80307; 81001; 82550; 82552; 82948; 82962; 83036; 83735; 84484; 85025; 85384; 85610; 85730; 86850; 86900; 86901; 92522; 92526; 92610; 93005; 93308; 94640; 94665; 97110; 97112; 97163; 97167; 97530; 99291; G0195; J1650; J1815; J7030; Q9967